=== PATIENT | female | born 1950 | race Caucasian/White ===

== ENCOUNTER 2016-07-07 13:51 | Emergency (ER) | payer MEDICARE ==
[~2016-07-07 13:51] MED LIST: ACET65TA; ASPI325T; AVAP150T; CALCCHW12; CALCUIM; HYDR25TA6; XANA0.25; ZOCO20TA; [UNRECOGNIZED DRUG - OTHER]
[2016-07-07] MEDS ORDERED: LEVALBUTEROL 1.25 MG/0.5 ML CONCENTRATE NEB As Ordered ONE (14:29)
--- NOTE | 2016-07-07 14:45 | REP ---
Chest two views HISTORY: Cough Comparison: 04/15/2013 The lungs are clear. The heart is normal in size. The pulmonary vasculature is normal in appearance. The bony structure is intact. IMPRESSION: No acute disease. Signed by Mirza Maya MD 07/07/2016 02:36 P
--- NOTE | 2016-07-07 15:22 | EDDOCDS ---
Nurse's Notes [facility] Name: Candice Avila Age: 65 yrs Sex: Female : 1950 Arrival Date: 07/07/2016 Time: 13:51 Bed PD2 / Private MD: Mary Brice Diagnosis: Cough;Acute upper respiratory infection, unspecified Presentation: 07/07 13:53 Presenting complaint: Patient states: coughing x2 weeks. Nasal congestion. Ear ttb infection (being treated)... unable to get into see PCP. Suicide/Homicide risk assessment- the patient denies having any suicidal and/or homicidal ideations and does not present with any other emotional, behavioral or mental health complaints. Status: Patient is not a service center assistant or dependent. Transition of care: patient was not received from another setting of care. 13:53 Acuity: Unassigned ttb 13:53 Method Of Arrival: Walkin/Carried/Asstd ttb 14:03 Adult Sepsis Screening: The patient does not have new or worsening altered mentation. ttb Patient's respiratory rate is less than 22. Systolic blood pressure is greater than 100. Patient has a qSOFA score of 0- Negative Sepsis Screen. 14:03 Acuity: ROXANNE Level 4 ttb Triage Assessment: 13:58 General: Appears in no apparent distress, well nourished, well groomed, Behavior is ttb appropriate for age, cooperative, pleasant. Pain: Denies pain. Neurological: Level of Consciousness is awake, alert. EENT: Reports nasal congestion nasal discharge. Cardiovascular: Chest pain is denied. Respiratory: Reports cough that is the patient has mild shortness of breath. Respiratory: Airway is patent Respiratory effort is even, unlabored. Derm: Skin is normal. Injury Description: No known injury. Historical: - Allergies: Zithromax Z-Koko; contrast; - Home Meds: 1. cefdinir 300 mg Oral cap 2 caps once daily (Last dose: 07/07/2016 08:00) 2. aspirin 325 mg Oral TbEC 1 tab once daily (Last dose: 07/07/2016 08:00) 3. losartan 100 mg oral tab 1 tab once daily (Last dose: 07/07/2016 08:00) 4. levothyroxine 75 mcg Oral cap 1 cap once daily (Last dose: 07/07/2016 07:00) 5. omeprazole 20 mg Oral cpDR 1 cap once daily (Last dose: 07/06/2016) 6. simvastatin 20 mg Oral tab 1 tab once daily (Last dose: 07/06/2016) 7. tramadol 50 mg Oral TbDL as needed (Last dose: 07/07/2016 10:00) 8. hydrochlorothiazide 12.5 mg Oral tab once daily (Last dose: 07/07/2016 08:00) - PMHx: Hypothyroidism; Hypertension; Hypercholesterolemia; TIA; - PSHx: CARPAL TUNNEL REPAIR; Breast Reduction; - Social history: Smoking status: Patient states was never smoker of tobacco. Patient/guardian denies using alcohol, street drugs, No barriers to communication noted, The patient speaks fluent Divehi, Speaks appropriately for age. - Family history: Not pertinent. - : The pt / caregiver states he / she is not on anticoagulants. Home medication list is obtained from the patient. - Exposure Risk Screening:: None identified. Screenin:20 Screening information is obtained from the patient. Fall risk: No risks identified. js13 Assistance ADL's: requires no assistance with activities of daily living. Abuse/DV Screen: The patient / caregiver reports he/she is: not in a situation that causes fear, pain or injury. Nutritional screening: No deficits noted. Advance Directives: There is no active DNR order. home support is adequate. Assessment: 14:25 General: Appears in no apparent distress, Behavior is appropriate for age, cooperative. srm Neurological: No deficits noted. EENT: No deficits noted. Respiratory: Airway is patent Respiratory effort is even, unlabored, Breath sounds with wheezes inspiratory expiratory bilaterally. GI: No deficits noted. Vital Signs: 13:53 BP 155 / 71; Pulse 70; Resp 17; Temp 97.8(T); Pulse Ox 98% on R/A; Weight 115.67 kg lr2 (R); Height 5 ft. 6 in. (167.64 cm) (R); 15:21 js13 13:53 Body Mass Index 41.16 (115.67 kg, 167.64 cm) lr2 15:21 Patient declines discharge VS js13 Vitals: 13:53 Log In Time: July 07, 2016 at 13:51. lr2 ED Course: 13:53 Patient visited by Ross, Brianne. lr2 13:53 Mary Brice is Private Physician. lr2 13:53 Patient moved to Waiting lr2 13:53 Patient moved to Pre RCE lr2 13:55 Triage Initiated ttb 13:59 Patient moved to Triage 2 ttb 14:01 [facility] dt4 14:01 Miranda Saavedra MD is Attending Physician. dt4 14:01 Patient visited by Joaquina Stafford PA-C. dt4 14:16 [facility] Payment Agreement was scanned into [employer] and attached to record. lg 14:19 Patient moved to PD js13 14:20 The patient / caregiver is instructed regarding the plan of care and ED course. js13 14:20 No IV's were initiated during this patient's visit. No procedures done that require js13 assistance. 14:25 Patient visited by Elmira Huntley RN. srm 15:01 Chest, 2 View (pa\E\lat) Returned. EDMS Administered Medications: 14:34 Drug: Levalbuterol 1.25 mg [levalbuterol 1.25 mg/0.5 mL solution for nebulization (0.5 cs15 mL)] Route: Nebulizer; RT: 14:35 Initial Med Neb Given as ordered. Oxygen is room air. Respiratory: Respiratory effort cs15 is unlabored, Respiratory pattern is regular symmetrical, Breath sounds with wheezes bilaterally. Order Results: Radiology Order: Chest, 2 View (pa\E\lat) Test: Chest, 2 View (pa\E\lat) REASON FOR EXAMINATION: Cough; Chest two views; ; HISTORY: Cough; ; Comparison: 04/15/2013; ; The lungs are clear. The heart is normal in size. The pulmonary vasculature is; normal in appearance. The bony structure is intact.; ; IMPRESSION: No acute disease.; ; ; Signed by; Mirza Maya MD 07/07/2016 02:36 P; Outcome: 15:15 Discharge ordered by Provider. dt4 15:18 Discharge Assessment: Patient awake, alert and oriented x 3. No cognitive and/or js13 functional deficits noted. Patient verbalized understanding of disposition instructions. patient administered narcotics - no. The following High Risk Discharge criteria are identified: None. Discharged to home ambulatory. Condition: stable. Discharge instructions given to patient, Instructed on discharge instructions, follow up and referral plans. medication usage, Demonstrated understanding of instructions, medications, Pt was receptive of discharge instructions/ teaching. Prescriptions given X 3. No special radiology studies were completed. Property :Personal belongings accompany Pt. 15:22 Patient left the ED. js13 Signatures: Dispatcher [employer] EDMS Elmira Huntley, RN RN Felicia Borja, Reg Reg lg Marilu Hogue RN RN js13 Ashely Ceja RN RN Joaquina King, ERIN PATrevon dt4 Patrick Abebe,RT RT cs15 Brianne Armando lr2 MTDD
--- NOTE | 2016-07-07 15:22 | EDDOCDS ---
Physician Documentation [facility] Name: Candice Avila Age: 65 yrs Sex: Female : 1950 Arrival Date: 07/07/2016 Time: 13:51 Bed PD Private MD: Mary Brice Disposition: 07/07/16 15:15 Discharged to Home/Self Care. Impression: Cough, Acute upper respiratory infection, unspecified. - Condition is Stable. - Discharge Instructions: Upper Respiratory Infection, Adult, Cough, Adult. - Prescriptions for Prednisone 20 mg Oral Tablet - take 2 tablets by ORAL route once daily for 5 days take with food, earlier in the day; 10 tablet. benzonatate 200 mg Oral Capsule - take 1 capsule by ORAL route 3 times per day As needed do not chew; 30 capsule. Fluticasone 50 mcg/actuation Nasal [place], Suspension - inhale 2 spray by INTRANASAL route once daily; 1 bottle. - Medication Reconciliation, Local Pharmacy Hours form. - Follow up: Emergency Department; When: As needed; Reason: Worsening of conditions. Follow up: Private Physician; When: 2 - 3 days; Reason: Wound/Symptom Recheck, Recheck today's complaints, Continuance of care. - Problem is new. - Symptoms have improved. Historical: - Allergies: Zithromax Z-Koko; contrast; - Home Meds: 1. cefdinir 300 mg Oral cap 2 caps once daily (Last dose: 07/07/2016 08:00) 2. aspirin 325 mg Oral TbEC 1 tab once daily (Last dose: 07/07/2016 08:00) 3. losartan 100 mg oral tab 1 tab once daily (Last dose: 07/07/2016 08:00) 4. levothyroxine 75 mcg Oral cap 1 cap once daily (Last dose: 07/07/2016 07:00) 5. omeprazole 20 mg Oral cpDR 1 cap once daily (Last dose: 07/06/2016) 6. simvastatin 20 mg Oral tab 1 tab once daily (Last dose: 07/06/2016) 7. tramadol 50 mg Oral TbDL as needed (Last dose: 07/07/2016 10:00) 8. hydrochlorothiazide 12.5 mg Oral tab once daily (Last dose: 07/07/2016 08:00) - PMHx: Hypothyroidism; Hypertension; Hypercholesterolemia; TIA; - PSHx: CARPAL TUNNEL REPAIR; Breast Reduction; - Social history: Smoking status: Patient states was never smoker of tobacco. Patient/guardian denies using alcohol, street drugs, No barriers to communication noted, The patient speaks fluent [place] Islander, Speaks appropriately for age. - Family history: Not pertinent. - : The pt / caregiver states he / she is not on anticoagulants. Home medication list is obtained from the patient. - Exposure Risk Screening:: None identified. Vital Signs: 07/07 13:53 BP 155 / 71; Pulse 70; Resp 17; Temp 97.8(T); Pulse Ox 98% on R/A; Weight 115.67 kg / lr2 255.01 lbs (R); Height 5 ft. 6 in. (167.64 cm) (R); 15:21 js13 13:53 Body Mass Index 41.16 (115.67 kg, 167.64 cm) lr2 15:21 Patient declines discharge VS js13 MDM: 14:16 Financial registration complete. lg 14:16 [facility] Payment Agreement was scanned into [employer] and attached to record. lg 14:20 Levalbuterol 1.25 mg Nebulizer once ordered. dt4 14:21 Chest, 2 View (pa\E\lat) Ordered. EDMS Administered Medications: 14:34 Drug: Levalbuterol 1.25 mg [levalbuterol 1.25 mg/0.5 mL solution for nebulization (0.5 cs15 mL)] Route: Nebulizer; Signatures: Dispatcher [employer] EDMS Felicia Ha, Amadeo Reg lg Marilu Hogue RN RN js13 Ashely Ceja RN RN Joaquina King PA-C PA-C dt4 Patrick Abebe RT cs15 The chart was reviewed and I authenticate all verbal orders and agree with the evaluation and treatment provided.Attachments: 14:16 [facility] Payment Agreement lg MTDD
--- NOTE | 2016-07-09 16:23 | EDDOCDS ---
Nurse's Notes [facility] Name: Candice Avila Age: 65 yrs Sex: Female : 1950 Arrival Date: 07/07/2016 Time: 13:51 Bed PD2 / Private MD: Mary Brice Diagnosis: Cough;Acute upper respiratory infection, unspecified Presentation: 07/07 13:53 Presenting complaint: Patient states: coughing x2 weeks. Nasal congestion. Ear ttb infection (being treated)... unable to get into see PCP. Suicide/Homicide risk assessment- the patient denies having any suicidal and/or homicidal ideations and does not present with any other emotional, behavioral or mental health complaints. 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 Transition of care: patient was not received from another setting of care. 13:53 Acuity: Unassigned ttb 13:53 Method Of Arrival: Walkin/Carried/Asstd ttb 14:03 Adult Sepsis Screening: The patient does not have new or worsening altered mentation. ttb Patient's respiratory rate is less than 22. Systolic blood pressure is greater than 100. Patient has a qSOFA score of 0- Negative Sepsis Screen. 14:03 Acuity: ROXANNE Level 4 ttb Triage Assessment: 13:58 General: Appears in no apparent distress, well nourished, well groomed, Behavior is ttb appropriate for age, cooperative, pleasant. Pain: Denies pain. Neurological: Level of Consciousness is awake, alert. EENT: Reports nasal congestion nasal discharge. Cardiovascular: Chest pain is denied. Respiratory: Reports cough that is the patient has mild shortness of breath. Respiratory: Airway is patent Respiratory effort is even, unlabored. Derm: Skin is normal. Injury Description: No known injury. Historical: - Allergies: Zithromax Z-Koko; contrast; - Home Meds: 1. cefdinir 300 mg Oral cap 2 caps once daily (Last dose: 07/07/2016 08:00) 2. aspirin 325 mg Oral TbEC 1 tab once daily (Last dose: 07/07/2016 08:00) 3. losartan 100 mg oral tab 1 tab once daily (Last dose: 07/07/2016 08:00) 4. levothyroxine 75 mcg Oral cap 1 cap once daily (Last dose: 07/07/2016 07:00) 5. omeprazole 20 mg Oral cpDR 1 cap once daily (Last dose: 07/06/2016) 6. simvastatin 20 mg Oral tab 1 tab once daily (Last dose: 07/06/2016) 7. tramadol 50 mg Oral TbDL as needed (Last dose: 07/07/2016 10:00) 8. hydrochlorothiazide 12.5 mg Oral tab once daily (Last dose: 07/07/2016 08:00) - PMHx: Hypothyroidism; Hypertension; Hypercholesterolemia; TIA; - PSHx: CARPAL TUNNEL REPAIR; Breast Reduction; - Social history: Smoking status: Patient states was never smoker of tobacco. Patient/guardian denies using alcohol, street drugs, No barriers to communication noted, The patient speaks fluent Khmer, Speaks appropriately for age. - Family history: Not pertinent. - : The pt / caregiver states he / she is not on anticoagulants. Home medication list is obtained from the patient. - Exposure Risk Screening:: None identified. Screenin:20 Screening information is obtained from the patient. Fall risk: No risks identified. js13 Assistance ADL's: requires no assistance with activities of daily living. Abuse/DV Screen: The patient / caregiver reports he/she is: not in a situation that causes fear, pain or injury. Nutritional screening: No deficits noted. Advance Directives: There is no active DNR order. home support is adequate. Assessment: 14:25 General: Appears in no apparent distress, Behavior is appropriate for age, cooperative. srm Neurological: No deficits noted. EENT: No deficits noted. Respiratory: Airway is patent Respiratory effort is even, unlabored, Breath sounds with wheezes inspiratory expiratory bilaterally. GI: No deficits noted. Vital Signs: 13:53 BP 155 / 71; Pulse 70; Resp 17; Temp 97.8(T); Pulse Ox 98% on R/A; Weight 115.67 kg lr2 (R); Height 5 ft. 6 in. (167.64 cm) (R); 15:21 js13 13:53 Body Mass Index 41.16 (115.67 kg, 167.64 cm) lr2 15:21 Patient declines discharge VS js13 Vitals: 13:53 Log In Time: July 07, 2016 at 13:51. lr2 ED Course: 13:53 Patient visited by Ross, Brianne. lr2 13:53 Mary Brice is Private Physician. lr2 13:53 Patient moved to Waiting lr2 13:53 Patient moved to Pre RCE lr2 13:55 Triage Initiated ttb 13:59 Patient moved to Triage 2 ttb 14:01 Joaquina Stafford PA-C is PHCP. dt4 14:01 Miranda Saavedra MD is Attending Physician. dt4 14:01 Patient visited by Joaquina Stafford PA-C. dt4 14:16 [facility] Payment Agreement was scanned into [employer] and attached to record. lg 14:19 Patient moved to PD js13 14:20 The patient / caregiver is instructed regarding the plan of care and ED course. js13 14:20 No IV's were initiated during this patient's visit. No procedures done that require js13 assistance. 14:25 Patient visited by Elmira Huntley RN. srm 15:01 Chest, 2 View (pa\E\lat) Returned. EDMS 07/08 11:53 T-Sheet-- Draft Copy was scanned into [employer] and attached to record. gb Administered Medications: 07/07 14:34 Drug: Levalbuterol 1.25 mg [levalbuterol 1.25 mg/0.5 mL solution for nebulization (0.5 cs15 mL)] Route: Nebulizer; RT: 14:35 Initial Med Neb Given as ordered. Oxygen is room air. Respiratory: Respiratory effort cs15 is unlabored, Respiratory pattern is regular symmetrical, Breath sounds with wheezes bilaterally. Order Results: Radiology Order: Chest, 2 View (pa\E\lat) Test: Chest, 2 View (pa\E\lat) REASON FOR EXAMINATION: Cough; Chest two views; ; HISTORY: Cough; ; Comparison: 04/15/2013; ; The lungs are clear. The heart is normal in size. The pulmonary vasculature is; normal in appearance. The bony structure is intact.; ; IMPRESSION: No acute disease.; ; ; Signed by; Mirza Maya MD 07/07/2016 02:36 P; Outcome: 15:15 Discharge ordered by Provider. dt4 15:18 Discharge Assessment: Patient awake, alert and oriented x 3. No cognitive and/or js13 functional deficits noted. Patient verbalized understanding of disposition instructions. patient administered narcotics - no. The following High Risk Discharge criteria are identified: None. Discharged to home ambulatory. Condition: stable. Discharge instructions given to patient, Instructed on discharge instructions, follow up and referral plans. medication usage, Demonstrated understanding of instructions, medications, Pt was receptive of discharge instructions/ teaching. Prescriptions given X 3. No special radiology studies were completed. Property :Personal belongings accompany Pt. 15:22 Patient left the ED. js13 Signatures: Dispatcher [employer] EDMS Elmira Huntley, RN RN [facility] Loretta Hazel, Reg Reg gb Felicia Ha, Reg Reg lg Marilu HogueRN RN js13 Ashely Ceja RN RN Joaquina King, PATrevon PAGenoC dt4 Patrick Abebe,RT RT cs15 Brianne Armando lr2 Chart Complete SABINA
--- NOTE | 2016-07-09 16:23 | EDDOCDS ---
Physician Documentation [facility] Name: Candice Avila Age: 65 yrs Sex: Female : 1950 Arrival Date: 07/07/2016 Time: 13:51 Bed PD Private MD: Mary Brice Disposition: 07/07/16 15:15 Discharged to Home/Self Care. Impression: Cough, Acute upper respiratory infection, unspecified. - Condition is Stable. - Discharge Instructions: Upper Respiratory Infection, Adult, Cough, Adult. - Prescriptions for Prednisone 20 mg Oral Tablet - take 2 tablets by ORAL route once daily for 5 days take with food, earlier in the day; 10 tablet. benzonatate 200 mg Oral Capsule - take 1 capsule by ORAL route 3 times per day As needed do not chew; 30 capsule. Fluticasone 50 mcg/actuation Nasal [place], Suspension - inhale 2 spray by INTRANASAL route once daily; 1 bottle. - Medication Reconciliation, Local Pharmacy Hours form. - Follow up: Emergency Department; When: As needed; Reason: Worsening of conditions. Follow up: Private Physician; When: 2 - 3 days; Reason: Wound/Symptom Recheck, Recheck today's complaints, Continuance of care. - Problem is new. - Symptoms have improved. Historical: - Allergies: Zithromax Z-Koko; contrast; - Home Meds: 1. cefdinir 300 mg Oral cap 2 caps once daily (Last dose: 07/07/2016 08:00) 2. aspirin 325 mg Oral TbEC 1 tab once daily (Last dose: 07/07/2016 08:00) 3. losartan 100 mg oral tab 1 tab once daily (Last dose: 07/07/2016 08:00) 4. levothyroxine 75 mcg Oral cap 1 cap once daily (Last dose: 07/07/2016 07:00) 5. omeprazole 20 mg Oral cpDR 1 cap once daily (Last dose: 07/06/2016) 6. simvastatin 20 mg Oral tab 1 tab once daily (Last dose: 07/06/2016) 7. tramadol 50 mg Oral TbDL as needed (Last dose: 07/07/2016 10:00) 8. hydrochlorothiazide 12.5 mg Oral tab once daily (Last dose: 07/07/2016 08:00) - PMHx: Hypothyroidism; Hypertension; Hypercholesterolemia; TIA; - PSHx: CARPAL TUNNEL REPAIR; Breast Reduction; - Social history: Smoking status: Patient states was never smoker of tobacco. Patient/guardian denies using alcohol, street drugs, No barriers to communication noted, The patient speaks fluent French, Speaks appropriately for age. - Family history: Not pertinent. - : The pt / caregiver states he / she is not on anticoagulants. Home medication list is obtained from the patient. - Exposure Risk Screening:: None identified. Vital Signs: 07/07 13:53 BP 155 / 71; Pulse 70; Resp 17; Temp 97.8(T); Pulse Ox 98% on R/A; Weight 115.67 kg / lr2 255.01 lbs (R); Height 5 ft. 6 in. (167.64 cm) (R); 15:21 js13 13:53 Body Mass Index 41.16 (115.67 kg, 167.64 cm) lr2 15:21 Patient declines discharge VS js13 MDM: 14:16 Financial registration complete. 14:16 [facility] Payment Agreement was scanned into [employer] and attached to record. lg 14:20 Levalbuterol 1.25 mg Nebulizer once ordered. dt4 14:21 Chest, 2 View (pa\E\lat) Ordered. [facility] 07/08 11:53 T-Sheet-- Draft Copy was scanned into [employer] and attached to record. gb Administered Medications: 07/07 14:34 Drug: Levalbuterol 1.25 mg [levalbuterol 1.25 mg/0.5 mL solution for nebulization (0.5 cs15 mL)] Route: Nebulizer; Signatures: Dispatcher [email or web address] EDMS Loretta Hazel, Reg Reg gb Felicia Ha, Reg Reg lg Marilu Hogue RN RN js13 Ashely Ceja RN RN ttb Tschudi, Diane, PA-C PATrevon dt4 Patrick Abebe RT cs15 The chart was reviewed and I authenticate all verbal orders and agree with the evaluation and treatment provided.Attachments: 14:16 [facility] Payment Agreement 07/08 11:53 T-Sheet-- Draft Copy gb Chart Complete MTDD
--- NOTE | 2016-07-09 16:23 | EDDOCDS ---
Physician Documentation [facility] Name: Candice Avila Age: 65 yrs Sex: Female : 1950 Arrival Date: 07/07/2016 Time: 13:51 Bed PD Private MD: Mary Brice Disposition: 07/07/16 15:15 Discharged to Home/Self Care. Impression: Cough, Acute upper respiratory infection, unspecified. - Condition is Stable. - Discharge Instructions: Upper Respiratory Infection, Adult, Cough, Adult. - Prescriptions for Prednisone 20 mg Oral Tablet - take 2 tablets by ORAL route once daily for 5 days take with food, earlier in the day; 10 tablet. benzonatate 200 mg Oral Capsule - take 1 capsule by ORAL route 3 times per day As needed do not chew; 30 capsule. Fluticasone 50 mcg/actuation Nasal [place], Suspension - inhale 2 spray by INTRANASAL route once daily; 1 bottle. - Medication Reconciliation, Local Pharmacy Hours form. - Follow up: Emergency Department; When: As needed; Reason: Worsening of conditions. Follow up: Private Physician; When: 2 - 3 days; Reason: Wound/Symptom Recheck, Recheck today's complaints, Continuance of care. - Problem is new. - Symptoms have improved. Historical: - Allergies: Zithromax Z-Koko; contrast; - Home Meds: 1. cefdinir 300 mg Oral cap 2 caps once daily (Last dose: 07/07/2016 08:00) 2. aspirin 325 mg Oral TbEC 1 tab once daily (Last dose: 07/07/2016 08:00) 3. losartan 100 mg oral tab 1 tab once daily (Last dose: 07/07/2016 08:00) 4. levothyroxine 75 mcg Oral cap 1 cap once daily (Last dose: 07/07/2016 07:00) 5. omeprazole 20 mg Oral cpDR 1 cap once daily (Last dose: 07/06/2016) 6. simvastatin 20 mg Oral tab 1 tab once daily (Last dose: 07/06/2016) 7. tramadol 50 mg Oral TbDL as needed (Last dose: 07/07/2016 10:00) 8. hydrochlorothiazide 12.5 mg Oral tab once daily (Last dose: 07/07/2016 08:00) - PMHx: Hypothyroidism; Hypertension; Hypercholesterolemia; TIA; - PSHx: CARPAL TUNNEL REPAIR; Breast Reduction; - Social history: Smoking status: Patient states was never smoker of tobacco. Patient/guardian denies using alcohol, street drugs, No barriers to communication noted, The patient speaks fluent French, Speaks appropriately for age. - Family history: Not pertinent. - : The pt / caregiver states he / she is not on anticoagulants. Home medication list is obtained from the patient. - Exposure Risk Screening:: None identified. Vital Signs: 07/07 13:53 BP 155 / 71; Pulse 70; Resp 17; Temp 97.8(T); Pulse Ox 98% on R/A; Weight 115.67 kg / lr2 255.01 lbs (R); Height 5 ft. 6 in. (167.64 cm) (R); 15:21 js13 13:53 Body Mass Index 41.16 (115.67 kg, 167.64 cm) lr2 15:21 Patient declines discharge VS js13 MDM: 14:16 Financial registration complete. 14:16 [facility] Payment Agreement was scanned into [employer] and attached to record. lg 14:20 Levalbuterol 1.25 mg Nebulizer once ordered. dt4 14:21 Chest, 2 View (pa\E\lat) Ordered. [facility] 07/08 11:53 T-Sheet-- Draft Copy was scanned into [employer] and attached to record. gb Administered Medications: 07/07 14:34 Drug: Levalbuterol 1.25 mg [levalbuterol 1.25 mg/0.5 mL solution for nebulization (0.5 cs15 mL)] Route: Nebulizer; Signatures: Dispatcher [email or web address] EDMS Loretta Hazel, Reg Reg gb Felicia Ha, Reg Reg lg Marilu Hogue RN RN js13 Ashely Ceja RN RN ttb Tschudi, Diane, PA-C PATrevon dt4 Patrick Abebe RT cs15 The chart was reviewed and I authenticate all verbal orders and agree with the evaluation and treatment provided.Attachments: 14:16 [facility] Payment Agreement 07/08 11:53 T-Sheet-- Draft Copy gb Chart Complete MTDD
== END 2016-07-07 15:22 | disposition home or self-care (01) ==
LOC: M ED 13:51
DX: J06.9 Acute upper respiratory infection, unspecified (principal); E03.9 Hypothyroidism, unspecified; I10 Essential (primary) hypertension; E78.00 Pure hypercholesterolemia, unspecified; Z86.73 Personal history of transient ischemic attack (TIA), and cerebral infarction without residual deficits; Z79.82 Long term (current) use of aspirin; Z79.891 Long term (current) use of opiate analgesic; Z79.899 Other long term (current) drug therapy; Z88.1 Allergy status to other antibiotic agents; Z91.041 Radiographic dye allergy status

== ENCOUNTER → 2016-07-12 | Outpatient (REF) | payer MEDICARE ==
[2016-07-12 19:14] LABS: FREE T4 1.15 NG/DL (0.76-1.46)
== END ==
LOC: M LABDRAW1 16:56
PROVIDERS: ATTEND Internal Medicine
DX: E89.0 Postprocedural hypothyroidism (principal)

== ENCOUNTER 2016-07-19 08:30 | Emergency (ER) | payer MEDICARE ==
[2016-07-19] MEDS ORDERED: diphenhydrAMINE INJ 50MG/ML VIAL (J1200) As Ordered ONE (09:22)
[2016-07-19] MEDS ORDERED: METOCLOPRAMIDE INJ 10MG/2ML VIAL (J2765) As Ordered ONE (09:22)
[2016-07-19 09:41] LABS: BASO % 0.3 % (0.0-1.0); EOS # 0.2 K/mm3 (0.0-0.50); EOS % 2.3 % (0.0-3.0); LARGE UNSTAINED CELL # 0.2 K/mm3 (0.0-0.4); LARGE UNSTAINED CELL % 1.9 % (0.0-4.0); LYMPH # 1.5 K/mm3 (1.5-4.5); LYMPH % 15.6 % (24.0-44.0); MEAN CORPUSCULAR HEMOGLOBIN 28.8 pg (27.0-33.0); MEAN CORPUSCULAR HGB CONC 32.8 g/dl (32.0-36.5); MEAN CORPUSCULAR VOLUME 87.8 fl (80.0-96.0); MONO # 0.5 K/mm3 (0.0-0.8); MONO % 5.4 % (0.0-5.0); NEUTROPHILS # 7.1 K/mm3 (1.8-7.7); NEUTROPHILS % 74.4 % (36.0-66.0); PLATELET COUNT, AUTOMATED 178 k/mm3 (150-450); RED CELL DISTRIBUTION WIDTH 12.7 % (11.5-14.5); WHITE BLOOD COUNT 9.5 K/mm3 (4.0-10.0)
[2016-07-19 10:15] LABS: ALBUMIN 3.5 GM/DL (3.2-5.2); ALBUMIN/GLOBULIN RATIO 1.06 (1.00-1.93); ALKALINE PHOSPHATASE 108 U/L (45-117); ALT/SGPT 22 U/L (12-78); ANION GAP 8 MEQ/L (8-16); AST/SGOT 15 U/L (15-37); BILIRUBIN,DIRECT 0.2 MG/DL (0.0-0.2); BILIRUBIN,TOTAL 0.6 MG/DL (0.2-1.0); BLOOD UREA NITROGEN 9 MG/DL (7-18); CALCIUM LEVEL 9.6 MG/DL (8.8-10.2); CARBON DIOXIDE LEVEL 29 MEQ/L (21-32); CHLORIDE LEVEL 103 MEQ/L (98-107); GLOMERULAR FILTRATION RATE 58.9 (>45); GLUCOSE, FASTING 113 MG/DL (80-110); POTASSIUM SERUM 3.6 MEQ/L (3.5-5.1); SODIUM LEVEL 140 MEQ/L (136-145); TOTAL PROTEIN 6.8 GM/DL (6.4-8.2)
--- NOTE | 2016-07-19 10:18 | ECGEPIP ---
Stationary ECG Study [facility] [place] - ED Test Date: 2016-07-19 Pat Name: RED FORREST Department: Room: - Gender: F Meat Butcher: jen : 1950 Requested By: Elizabeth Covington Order Number: [id number] Reading MD: Elizabeth Covington Measurements Intervals [place] Rate: 61 P: 83 [place]: 203 QRS: -4 QRSD: 89 T: 52 QT: 440 QTc: 446 Interpretive Statements SINUS RHYTHM NONSPECIFIC T-WAVE ABNORMALITY DECREASED RATE 06/12/14 Electronically Signed On 07-19-2016 10:06:48 EST by Elizabeth Covington
--- NOTE | 2016-07-19 10:18 | REP ---
Clinical: Headache. Comparison 06/12/2014. Findings: Age-related atrophy and microvascular ischemic changes are appreciated. The ventricles and sulci are symmetric. Gonzalez-white differentiation is maintained. There is no evidence for acute intracranial hemorrhage, mass/mass effect, pathology or infarction. No extra-axial fluid collection. Calvarium is intact. Paranasal sinuses and mastoid air cells are clear. Impression: Age related atrophy and microvascular ischemic changes. No acute intracranial hemorrhage, infarction, or mass/mass effect. Signed by Bharat Alva MD 07/19/2016 10:07 A
--- NOTE | 2016-07-19 13:38 | EDDOCDS ---
Nurse's Notes [facility] Name: Red Forrest Age: 65 yrs Sex: Female : 1950 Arrival Date: 07/19/2016 Time: 08:30 Bed 8 Private MD: Mervin Gaston M.D. Diagnosis: Headache;Adjustment disorder with depressed mood Presentation: 07/19 08:33 Presenting complaint: Patient states: "Pressure in my head" and dizziness began 5-6 mlb1 weeks ago. This patient has no additional risk factors. Adult Sepsis Screening: The patient does not have new or worsening altered mentation. Patient's respiratory rate is less than 22. Systolic blood pressure is greater than 100. No known or suspected infection- Negative Sepsis Screen. Adult Sepsis Screening: Patient has a qSOFA score of 0- Negative Sepsis Screen. Suicide/Homicide risk assessment- the patient denies having any suicidal and/or homicidal ideations and does not present with any other emotional, behavioral or mental health complaints. Status: Patient is not a job service consultant or dependent. Transition of care: patient was not received from another setting of care. 08:33 Acuity: ROXANNE Level 3 mlb1 08:33 Method Of Arrival: Walkin/Carried/Asstd mlb1 Triage Assessment: 08:36 Headache History: This patient does not have a history of previous headaches. General: mlb1 Appears in no apparent distress, Behavior is appropriate for age, cooperative. Pain: Location: head Pain currently is 9 out of 10 on a pain scale. Neurological: Reports dizziness. Historical: - Allergies: contrast; Zithromax Z-Koko; - Home Meds: 1. aspirin 325 mg Oral TbEC 1 tab once daily 2. hydrochlorothiazide 12.5 mg Oral tab once daily 3. levothyroxine 75 mcg Oral cap 1 cap once daily 4. losartan 100 mg oral tab 1 tab once daily 5. omeprazole 20 mg Oral cpDR 1 cap once daily 6. simvastatin 20 mg Oral tab 1 tab once daily 7. tramadol 50 mg Oral TbDL as needed - PMHx: Hypercholesterolemia; Hypertension; Hypothyroidism; TIA; - PSHx: CARPAL TUNNEL REPAIR; Breast Reduction; - Social history: Smoking status: Patient states former smoker of tobacco. No barriers to communication noted, The patient speaks fluent [place], Speaks appropriately for age. - Family history: Not pertinent. - : The pt / caregiver states he / she is not on anticoagulants. Home medication list is obtained from the patient. - Exposure Risk Screening:: None identified. Screenin:36 Screening information is obtained from the patient. Fall risk: No risks identified. dsf Assistance ADL's: requires no assistance with activities of daily living. Abuse/DV Screen: The patient / caregiver reports he/she is: not in a situation that causes fear, pain or injury. Nutritional screening: No deficits noted. Advance Directives: Currently, there is no health care proxy. home support is adequate. Assessment: 09:33 General: Appears in no apparent distress, Behavior is flat. Pain: Location: head Pain dsf currently is 8 out of 10 on a pain scale. Neurological: Level of Consciousness is awake, alert, Oriented to person, place, none. Cardiovascular: No deficits noted. Respiratory: No deficits noted. Derm: Skin is pink, warm & dry. 10:27 Adult Sepsis Screening: The patient does not have new or worsening altered mentation. dsf Patient's respiratory rate is less than 22. Systolic blood pressure is greater than 100. Patient has a qSOFA score of 0- Negative Sepsis Screen. General: Appears in no apparent distress, Behavior is flat. Pain: Location: head Pain currently is 6 out of 10 on a pain scale. Neurological: Level of Consciousness is awake, alert, Oriented to person, place, time. Cardiovascular: Capillary refill < 3 seconds Heart tones S1 S2 present Rhythm is sinus bradycardia No ectopy. Respiratory: Airway is patent Respiratory effort is even, unlabored, Respiratory pattern is regular, symmetrical, Breath sounds are clear bilaterally. GI: Abdomen is non- distended Bowel sounds present X 4 quads. Abd is soft and non tender X 4 quads. Derm: Skin is pink, warm & dry. 10:45 General: pt drinking devan mahesh without difficulty . dsf 11:35 Adult Sepsis Screening: The patient does not have new or worsening altered mentation. dsf Patient's respiratory rate is less than 22. Systolic blood pressure is greater than 100. Patient has a qSOFA score of 0- Negative Sepsis Screen. General: Appears in no apparent distress, comfortable, Behavior is appropriate for age, cooperative, flat. Pain: Location: head Pain currently is 4 out of 10 on a pain scale. Neurological: Level of Consciousness is awake, alert. Cardiovascular: Capillary refill < 3 seconds. Respiratory: Airway is patent Respiratory effort is even, unlabored, Respiratory pattern is regular, symmetrical. Derm: Skin is pink, warm & dry. 12:35 General: Appears in no apparent distress, Behavior is appropriate for age, cooperative, hs1 flat. Neurological: Level of Consciousness is awake, alert. Cardiovascular: Capillary refill < 3 seconds. Respiratory: Airway is patent Respiratory effort is even, unlabored, Respiratory pattern is regular, symmetrical. Derm: Skin is pink, warm & dry. 13:10 General: Steven Serrano PFS in talking to patient and significant other . dsf 13:36 Adult Sepsis Screening: The patient does not have new or worsening altered mentation. dsf Patient's respiratory rate is less than 22. Systolic blood pressure is greater than 100. Patient has a qSOFA score of 0- Negative Sepsis Screen. General: Appears in no apparent distress, comfortable, Behavior is appropriate for age, cooperative, flat. Pain: Location: head Pain currently is 1 out of 10 on a pain scale. Neurological: Level of Consciousness is awake, alert, Oriented to person, place, time. Cardiovascular: No deficits noted. Respiratory: No deficits noted. Derm: Skin is pink, warm & dry. Vital Signs: 08:37 BP 171 / 83; Pulse 68; Resp 16; Temp 98.2(TE); Pulse Ox 98% on R/A; Weight 117.93 kg mlb1 (R); Height 5 ft. 6 in. (167.64 cm) (R); Pain 9/10; 10:06 Pulse 52 MON; dsf 10:06 BP 151 / 69 (auto/); dsf 10:07 Pulse 52 MON; Pulse Ox 98% ; dsf 10:07 Pain 6/10; dsf 10:26 BP 151 / 65 (auto/); dsf 10:27 Pulse 56 MON; Pulse Ox 97% ; dsf 11:41 Pulse 58 MON; Pulse Ox 97% ; dsf 11:41 BP 120 / 56 (auto/); dsf 11:56 BP 120 / 54 (auto/); dsf 11:56 Pulse 52 MON; Pulse Ox 96% ; dsf 12:49 BP 115 / 57; Pulse 71; Resp 16; Temp 97.2; Pulse Ox 97% ; Pain 3/10; cmb 08:37 Body Mass Index 41.96 (117.93 kg, 167.64 cm) mlb1 Vitals: 08:37 Log In Time: July 19, 2016 at 08:28. mlb1 ED Course: 08:31 Patient visited by Felicia Ha Reg. lg 08:31 Mervin Gaston is Private Physician. lg 08:31 Patient moved to Waiting lg 08:33 Patient visited by Shaka Romero, RN. mlb1 08:35 Triage Initiated mlb1 08:37 Patient visited by Shaka Romero, RN. mlb1 08:38 Patient moved to 8 mlb1 09:04 Elizabeth Covington MD is Attending Physician. sd1 09:08 Patient visited by Elizabeth Covington MD. sd1 09:30 EKG done. (by ED staff). Reviewed by Elizabeth Covington MD. cmb 09:33 Inserted saline lock: 20 gauge in left antecubital area The patient tolerated the dsf procedure well. 09:34 CBC with Diff Sent. dsf 09:34 Cardiac Injury Profile Sent. dsf 09:34 Liver Profile Sent. dsf 09:34 MED Profile Sent. dsf 09:34 Thyroid Stimulating Hormone Sent. dsf 09:34 Troponin Sent. dsf 09:35 Pt greeted and oriented to ED. Patient advised of names of staff involved in care, cmb location of call corral, wait times and NPO status. Patient has correct armband on for positive identification. Placed in gown. Bed in low position. Call light in reach. Side rails up X2. rubber tester on. Pulse ox on. NIBP on. 09:36 Patient visited by Rachel Cherry. cmb 09:[address] dsf 09:49 [facility] Payment Agreement was scanned into [employer] and attached to record. mm15 09:58 Patient moved to 8 dsf 10:07 Patient visited by Rachel Cherry. cmb 10:28 Patient visited by Guillermina Randolph,JAVON. dsf 10:49 EKG-ADULT Returned. EDMS 10:52 CT Head Without Contrast Returned. EDMS 11:36 Patient visited by Guillermina Randolph,JAVON. dsf 12:39 Patient visited by Kassi Head RN. hs1 12:49 Patient visited by Rachel Cherry. cmb 13:27 Mervin Gaston is Referral Physician. sd1 13:27 Racheal Naqvi MD is Referral Physician. sd1 13:27 Referral list, As provided by PFS is Referral Physician. sd1 13:37 The patient / caregiver is instructed regarding the plan of care and ED course. dsf 13:37 Discontinued lock intact, bleeding controlled, pressure dressing applied, No dsf redness/swelling at site. No procedures done that require assistance. Administered Medications: 09:34 Drug: Metoclopramide 10 mg [metoclopramide 5 mg/mL injection solution] Route: IV; Rate: dsf 40 mg/hr; Infused Over: 15 mins; Site: left antecubital; 10:07 Follow up: Pain 11/04 Adult; IV Status: Completed infusion dsf 09:34 Drug: diphenhydrAMINE 25 mg [diphenhydramine 50 mg/mL injection solution (0.5 mL)] dsf Route: IVP; Site: left antecubital; 09:35 Drug: NS 0.9% 1000 ml [sodium chloride 0.9 % injection solution] Route: IV; Rate: 150 dsf mL/hr; Site: left antecubital; 10:27 Drug: NS 0.9% 1000 ml [sodium chloride 0.9 % injection solution] Route: IV; Rate: dsf bolus; Site: left antecubital; 12:01 Follow up: IV Status: Completed infusion; IV Intake: 1000ml dsf Intake: 12:01 IV: 1000.00ml; Total: 1000.00ml. dsf Order Results: Lab Order: CBC with Diff; SPEC'M 07/19/16 09:32 Test: WHITE BLOOD COUNT; Value: 9.5; Range: 4.0-10.0; Units: K/mm3; Status: F Test: RED BLOOD COUNT; Value: 5.01; Range: 4.00-5.40; Units: M/mm3; Status: F Test: HEMOGLOBIN; Value: 14.4; Range: 12.0-16.0; Units: g/dl; Status: F Test: HEMATOCRIT; Value: 44.0; Range: 36.0-47.0; Units: %; Status: F Test: MEAN CORPUSCULAR VOLUME; Value: 87.8; Range: 80.0-96.0; Units: fl; Status: F Test: MEAN CORPUSCULAR HEMOGLOBIN; Value: 28.8; Range: 27.0-33.0; Units: pg; Status: F Test: MEAN CORPUSCULAR HGB CONC; Value: 32.8; Range: 32.0-36.5; Units: g/dl; Status: F Test: RED CELL DISTRIBUTION WIDTH; Value: 12.7; Range: 11.5-14.5; Units: %; Status: F Test: PLATELET COUNT, AUTOMATED; Value: 178; Range: 150-450; Units: k/mm3; Status: F Test: NEUTROPHILS %; Value: 74.4; Range: 36.0-66.0; Abnormal: Above high normal; Units: %; Status: F Test: LYMPH %; Value: 15.6; Range: 24.0-44.0; Abnormal: Below low normal; Units: %; Status: F Test: MONO %; Value: 5.4; Range: 0.0-5.0; Abnormal: Above high normal; Units: %; Status: F Test: EOS %; Value: 2.3; Range: 0.0-3.0; Units: %; Status: F Test: BASO %; Value: 0.3; Range: 0.0-1.0; Units: %; Status: F Test: LARGE UNSTAINED CELL %; Value: 1.9; Range: 0.0-4.0; Units: %; Status: F Test: NEUTROPHILS #; Value: 7.1; Range: 1.8-7.7; Units: K/mm3; Status: F Test: LYMPH #; Value: 1.5; Range: 1.5-4.5; Units: K/mm3; Status: F Test: MONO #; Value: 0.5; Range: 0.0-0.8; Units: K/mm3; Status: F Test: EOS #; Value: 0.2; Range: 0.0-0.50; Units: K/mm3; Status: F Test: BASO #; Value: 0.0; Range: 0.0-0.2; Units: K/mm3; Status: F Test: LARGE UNSTAINED CELL #; Value: 0.2; Range: 0.0-0.4; Units: K/mm3; Status: F Lab Order: Cardiac Injury Profile; [facility]07/19/16 09:32 Test: CPK CREATINE PHOSPHOKINASE; Value: 22; Range: 26-192; Abnormal: Below low normal; Units: U/L; Status: F Test: CK-MB VALUE MASS; Value: 1.0; Range: 0.0-3.6; Units: NG/ML; Status: F Test: MB/CK RELATIVE INDEX; Value: 4.54; Range: < OR =4; Abnormal: Above high normal; Status: F Test Note: ; DIAGNOSIS CRITERIA MMB ng/ml Relative Index (RI) NON-AMI < or = 5 N/A GONZALEZ ZONE > 5 < or = 4 AMI > 5 > 4 Lab Order: Liver Profile; [facility]07/19/16 09:32 Test: AST/SGOT; Value: 15; Range: 15-37; Units: U/L; Status: F Test: ALT/SGPT; Value: 22; Range: 12-78; Units: U/L; Status: F Test: ALKALINE PHOSPHATASE; Value: 108; Range: 45-117; Units: U/L; Status: F Test: BILIRUBIN,TOTAL; Value: 0.6; Range: 0.2-1.0; Units: MG/DL; Status: F Test: BILIRUBIN,DIRECT; Value: 0.2; Range: 0.0-0.2; Units: MG/DL; Status: F Test: TOTAL PROTEIN; Value: 6.8; Range: 6.4-8.2; Units: GM/DL; Status: F Test: ALBUMIN; Value: 3.5; Range: 3.2-5.2; Units: GM/DL; Status: F Test: ALBUMIN/GLOBULIN RATIO; Value: 1.06; Range: 1.00-1.93; Status: F Lab Order: MED Profile; 07/19/16 09:32 Test: GLUCOSE, FASTING; Value: 113; Range: 80-110; Abnormal: Above high normal; Units: MG/DL; Status: F Test: BLOOD UREA NITROGEN; Value: 9; Range: 7-18; Units: MG/DL; Status: F Test: CREATININE FOR GFR; Value: 1.00; Range: 0.55-1.02; Units: MG/DL; Status: F Test: GLOMERULAR FILTRATION RATE; Value: 58.9; Range: >45; Status: F Test: SODIUM LEVEL; Value: 140; Range: 136-145; Units: MEQ/L; Status: F Test: POTASSIUM SERUM; Value: 3.6; Range: 3.5-5.1; Units: MEQ/L; Status: F Test: CHLORIDE LEVEL; Value: 103; Range: 98-107; Units: MEQ/L; Status: F Test: CARBON DIOXIDE LEVEL; Value: 29; Range: 21-32; Units: MEQ/L; Status: F Test: ANION GAP; Value: 8; Range: 8-16; Units: MEQ/L; Status: F Test: CALCIUM LEVEL; Value: 9.6; Range: 8.8-10.2; Units: MG/DL; Status: F Test Note: ; Units are mL/min/1.73 m2 Chronic Kidney Disease Staging per NKF: Stage I & II GFR >=60 Normal to Mildly Decreased Stage III GFR 30-59 Moderately Decreased Stage IV GFR 15-29 Severely Decreased Stage V GFR <15 Very Little GFR Left ESRD GFR <15 on RING CONDUCTOR Lab Order: Thyroid Stimulating Hormone; SPEC'M 07/19/16 09:32 Test: THYROID STIMULATING HORMONE; Value: 1.130; Range: 0.358-3.740; Units: uIU/ML; Status: F Lab Order: Troponin; SPEC'M 07/19/16 09:32 Test: TROPONIN I; Value: < 0.02; Range: < 0.10; Units: NG/ML; Status: F Test Note: ; Troponin I Reference Interval for [employer] LOCI: 99th Percentile= 0.00-0.045 ng/ml Risk Stratification: <= 0.10 ng/ml Decreased Risk for Adverse Clinical Events. 0.10-1.50 ng/ml Increased Risk for Adverse Clinical Events. Evaluation of additional criterion and/or repeat testing in 2-6 hours is suggested to rule out myocardial damage. >= 1.50 ng/ml Indicative of Myocardial Injury. Radiology Order: CT Head Without Contrast Test: CT Head Without Contrast REASON FOR EXAMINATION: HEADACHE DIZZY ; Clinical: Headache.; ; Comparison 06/12/2014.; ; Findings:; Age-related atrophy and microvascular ischemic changes are appreciated. The; ventricles and sulci are symmetric. Gonzalez-white differentiation is maintained.; There is no evidence for acute intracranial hemorrhage, mass/mass effect,; pathology or infarction. No extra-axial fluid collection. Calvarium is intact.; Paranasal sinuses and mastoid air cells are clear.; ; Impression:; Age related atrophy and microvascular ischemic changes.; No acute intracranial hemorrhage, infarction, or mass/mass effect.; ; ; ; ; Signed by; Bharat Alva MD 07/19/2016 10:07 A; Radiology Order: EKG-ADULT Test: EKG-ADULT REASON FOR EXAMINATION: WEAKNESS; Stationary ECG Study; [facility] - ED; ; Test Date: 2016-07-19; Pat Name: RED FORREST Department:; Room: -; Gender: F Quality Improvement Consultant: jen; : 1950 Requested By: Elizabeth Covington; Order Number: [id number] Reading MD: Elizabeth Covington; Measurements; Intervals [place]; Rate: 61 P: 83; FL: 203 QRS: -4; QRSD: 89 T: 52; QT: 440; QTc: 446; Interpretive Statements; SINUS RHYTHM; NONSPECIFIC T-WAVE ABNORMALITY; DECREASED RATE 06/12/14; Electronically Signed On 07-19-2016 10:06:48 EST by Elizabeth Covington; Outcome: 13:27 Discharge ordered by Provider. sd1 13:37 Discharge Assessment: Patient awake, alert and oriented x 3. No cognitive and/or dsf functional deficits noted. Patient verbalized understanding of disposition instructions. patient administered narcotics - no. The following High Risk Discharge criteria are identified: None. Discharged to home ambulatory. Condition: stable. Discharge instructions given to patient, Instructed on discharge instructions, follow up and referral plans. Demonstrated understanding of instructions, Pt was receptive of discharge instructions/ teaching. CT Study completed. Property sent home with patient. 13:37 Patient left the ED. dsf Signatures: Dispatcher [employer] EDPA Elizabeth Covington MD MD sd1 Felicia Ha, Shaka Proctor lg RN RN mlb1 Kassi Head RN RN hs1 Guillermina Randolph RN RN dsRachel Hoffman cmb Renay Ziegler mm15 MTDD
--- NOTE | 2016-07-19 13:38 | EDDOCDS ---
Physician Documentation [facility] Name: Candice Avila Age: 65 yrs Sex: Female : 1950 Arrival Date: 07/19/2016 Time: 08:30 Bed 8 Private MD: Mervin Gaston M.D. Disposition: 07/19/16 13:27 Discharged to Home/Self Care. Impression: Headache, Adjustment disorder with depressed mood. - Condition is Stable. - Discharge Instructions: Adjustment Disorder, Migraine Headache, Migraine Headache, [id number], General Headache Without Cause, [id number]. - Medication Reconciliation, Local Pharmacy Hours form. - Follow up: Mervin Gaston; When: 1 - 2 days. Follow up: ; When: Call to arrange an appointment. Follow up: As provided by PFS Referral list; When: Call to arrange an appointment. - Problem is an acute exacerbation. - Symptoms have improved. Historical: - Allergies: contrast; Zithromax Z-Koko; - Home Meds: 1. aspirin 325 mg Oral TbEC 1 tab once daily 2. hydrochlorothiazide 12.5 mg Oral tab once daily 3. levothyroxine 75 mcg Oral cap 1 cap once daily 4. losartan 100 mg oral tab 1 tab once daily 5. omeprazole 20 mg Oral cpDR 1 cap once daily 6. simvastatin 20 mg Oral tab 1 tab once daily 7. tramadol 50 mg Oral TbDL as needed - PMHx: Hypercholesterolemia; Hypertension; Hypothyroidism; TIA; - PSHx: CARPAL TUNNEL REPAIR; Breast Reduction; - Social history: Smoking status: Patient states former smoker of tobacco. No barriers to communication noted, The patient speaks fluent [place], Speaks appropriately for age. - Family history: Not pertinent. - : The pt / caregiver states he / she is not on anticoagulants. Home medication list is obtained from the patient. - Exposure Risk Screening:: None identified. Vital Signs: 07/19 08:37 BP 171 / 83; Pulse 68; Resp 16; Temp 98.2(TE); Pulse Ox 98% on R/A; Weight 117.93 kg / mlb1 259.99 lbs (R); Height 5 ft. 6 in. (167.64 cm) (R); Pain 9/10; 10:06 Pulse 52 MON; dsf 10:06 BP 151 / 69 (auto/); dsf 10:07 Pulse 52 MON; Pulse Ox 98% ; dsf 10:07 Pain 6/10; dsf 10:26 BP 151 / 65 (auto/); dsf 10:27 Pulse 56 MON; Pulse Ox 97% ; dsf 11:41 Pulse 58 MON; Pulse Ox 97% ; dsf 11:41 BP 120 / 56 (auto/); dsf 11:56 BP 120 / 54 (auto/); dsf 11:56 Pulse 52 MON; Pulse Ox 96% ; dsf 12:49 BP 115 / 57; Pulse 71; Resp 16; Temp 97.2; Pulse Ox 97% ; Pain 3/10; cmb 08:37 Body Mass Index 41.96 (117.93 kg, 167.64 cm) mlb1 MDM: 09:20 NS 0.9% 1000 ml IV at 150 mL/hr continuous ordered. sd1 09:20 Metoclopramide 10 mg IV at 40 mg/hr once over 15 mins ordered. sd1 09:20 diphenhydrAMINE 25 mg IVP once ordered. sd1 09:20 Financial Internship/Pulse Ox/q 15 min VS ordered. sd1 09:20 IV Saline Lock ordered. sd1 09:20 Rhythm Strip to chart ordered. sd1 09:21 CT Head Without Contrast Ordered. EDMS 09:21 CBC with Diff Ordered. EDMS 09:21 Cardiac Injury Profile Ordered. EDMS 09:21 Liver Profile Ordered. EDMS 09:21 MED Profile Ordered. EDMS 09:21 Thyroid Stimulating Hormone Ordered. EDMS 09:21 Troponin Ordered. EDMS 09:22 ECG WITH READING ER PHYS+CARDIAG ordered. EDMS 09:37 Consult: Machine Tank Operator ordered. sd1 09:47 Financial registration complete. mm15 09:49 [facility] Payment Agreement was scanned into [employer] and attached to record. mm15 10:18 CBC with Diff Reviewed. sd1 10:18 MED Profile Reviewed. sd1 10:18 Liver Profile Reviewed. sd1 10:18 Troponin Reviewed. sd1 10:19 NS 0.9% 1000 ml IV at 250 mL/hr continuous ordered. sd1 10:19 NS 0.9% 1000 ml IV at bolus once ordered. sd1 10:33 Cardiac Injury Profile Reviewed. sd1 10:33 MED Profile Reviewed. sd1 10:33 Liver Profile Reviewed. sd1 10:33 Thyroid Stimulating Hormone Reviewed. sd1 10:33 Troponin Reviewed. sd1 10:42 Fluid Challenge ordered. sd1 11:49 REGULAR+DIET ordered. EDMS Administered Medications: 09:34 Drug: Metoclopramide 10 mg [metoclopramide 5 mg/mL injection solution] Route: IV; Rate: dsf 40 mg/hr; Infused Over: 15 mins; Site: left antecubital; 10:07 Follow up: Pain 10 Adult; IV Status: Completed infusion dsf 09:34 Drug: diphenhydrAMINE 25 mg [diphenhydramine 50 mg/mL injection solution (0.5 mL)] dsf Route: IVP; Site: left antecubital; 09:35 Drug: NS 0.9% 1000 ml [sodium chloride 0.9 % injection solution] Route: IV; Rate: 150 dsf mL/hr; Site: left antecubital; 10:27 Drug: NS 0.9% 1000 ml [sodium chloride 0.9 % injection solution] Route: IV; Rate: dsf bolus; Site: left antecubital; 12:01 Follow up: IV Status: Completed infusion; IV Intake: 1000ml dsf Signatures: Dispatcher [employer] EDMS Elizabeth Covington MD MD sd1 Shaka Romero RN RN mlb1 Guillermina Randolph RN RN dsf Renay Ziegler mm15 The chart was reviewed and I authenticate all verbal orders and agree with the evaluation and treatment provided.Attachments: 09:49 [facility] Payment Agreement mm15 MTDD
--- NOTE | 2016-07-21 14:38 | EDDOCDS ---
Nurse's Notes [facility] Name: Red Forrest Age: 65 yrs Sex: Female : 1950 Arrival Date: 07/19/2016 Time: 08:30 Bed 8 Private MD: Mervin Gaston M.D. Diagnosis: Headache;Adjustment disorder with depressed mood Presentation: 07/19 08:33 Presenting complaint: Patient states: "Pressure in my head" and dizziness began 5-6 mlb1 weeks ago. This patient has no additional risk factors. Adult Sepsis Screening: The patient does not have new or worsening altered mentation. Patient's respiratory rate is less than 22. Systolic blood pressure is greater than 100. No known or suspected infection- Negative Sepsis Screen. Adult Sepsis Screening: Patient has a qSOFA score of 0- Negative Sepsis Screen. Suicide/Homicide risk assessment- the patient denies having any suicidal and/or homicidal ideations and does not present with any other emotional, behavioral or mental health complaints. Status: Patient is not a social service manager or dependent. Transition of care: patient was not received from another setting of care. 08:33 Acuity: ROXANNE Level 3 mlb1 08:33 Method Of Arrival: Walkin/Carried/Asstd mlb1 Triage Assessment: 08:36 Headache History: This patient does not have a history of previous headaches. General: mlb1 Appears in no apparent distress, Behavior is appropriate for age, cooperative. Pain: Location: head Pain currently is 9 out of 10 on a pain scale. Neurological: Reports dizziness. Historical: - Allergies: contrast; Zithromax Z-Koko; - Home Meds: 1. aspirin 325 mg Oral TbEC 1 tab once daily 2. hydrochlorothiazide 12.5 mg Oral tab once daily 3. levothyroxine 75 mcg Oral cap 1 cap once daily 4. losartan 100 mg oral tab 1 tab once daily 5. omeprazole 20 mg Oral cpDR 1 cap once daily 6. simvastatin 20 mg Oral tab 1 tab once daily 7. tramadol 50 mg Oral TbDL as needed - PMHx: Hypercholesterolemia; Hypertension; Hypothyroidism; TIA; - PSHx: CARPAL TUNNEL REPAIR; Breast Reduction; - Social history: Smoking status: Patient states former smoker of tobacco. No barriers to communication noted, The patient speaks fluent Kazakh, Speaks appropriately for age. - Family history: Not pertinent. - : The pt / caregiver states he / she is not on anticoagulants. Home medication list is obtained from the patient. - Exposure Risk Screening:: None identified. Screenin:36 Screening information is obtained from the patient. Fall risk: No risks identified. dsf Assistance ADL's: requires no assistance with activities of daily living. Abuse/DV Screen: The patient / caregiver reports he/she is: not in a situation that causes fear, pain or injury. Nutritional screening: No deficits noted. Advance Directives: Currently, there is no health care proxy. home support is adequate. Assessment: 09:33 General: Appears in no apparent distress, Behavior is flat. Pain: Location: head Pain dsf currently is 8 out of 10 on a pain scale. Neurological: Level of Consciousness is awake, alert, Oriented to person, place, none. Cardiovascular: No deficits noted. Respiratory: No deficits noted. Derm: Skin is pink, warm & dry. 10:27 Adult Sepsis Screening: The patient does not have new or worsening altered mentation. dsf Patient's respiratory rate is less than 22. Systolic blood pressure is greater than 100. Patient has a qSOFA score of 0- Negative Sepsis Screen. General: Appears in no apparent distress, Behavior is flat. Pain: Location: head Pain currently is 6 out of 10 on a pain scale. Neurological: Level of Consciousness is awake, alert, Oriented to person, place, time. Cardiovascular: Capillary refill < 3 seconds Heart tones S1 S2 present Rhythm is sinus bradycardia No ectopy. Respiratory: Airway is patent Respiratory effort is even, unlabored, Respiratory pattern is regular, symmetrical, Breath sounds are clear bilaterally. GI: Abdomen is non- distended Bowel sounds present X 4 quads. Abd is soft and non tender X 4 quads. Derm: Skin is pink, warm & dry. 10:45 General: pt drinking devan mahesh without difficulty . dsf 11:35 Adult Sepsis Screening: The patient does not have new or worsening altered mentation. dsf Patient's respiratory rate is less than 22. Systolic blood pressure is greater than 100. Patient has a qSOFA score of 0- Negative Sepsis Screen. General: Appears in no apparent distress, comfortable, Behavior is appropriate for age, cooperative, flat. Pain: Location: head Pain currently is 4 out of 10 on a pain scale. Neurological: Level of Consciousness is awake, alert. Cardiovascular: Capillary refill < 3 seconds. Respiratory: Airway is patent Respiratory effort is even, unlabored, Respiratory pattern is regular, symmetrical. Derm: Skin is pink, warm & dry. 12:35 General: Appears in no apparent distress, Behavior is appropriate for age, cooperative, hs1 flat. Neurological: Level of Consciousness is awake, alert. Cardiovascular: Capillary refill < 3 seconds. Respiratory: Airway is patent Respiratory effort is even, unlabored, Respiratory pattern is regular, symmetrical. Derm: Skin is pink, warm & dry. 13:10 General: Steven Serrano PFS in talking to patient and significant other . dsf 13:36 Adult Sepsis Screening: The patient does not have new or worsening altered mentation. dsf Patient's respiratory rate is less than 22. Systolic blood pressure is greater than 100. Patient has a qSOFA score of 0- Negative Sepsis Screen. General: Appears in no apparent distress, comfortable, Behavior is appropriate for age, cooperative, flat. Pain: Location: head Pain currently is 1 out of 10 on a pain scale. Neurological: Level of Consciousness is awake, alert, Oriented to person, place, time. Cardiovascular: No deficits noted. Respiratory: No deficits noted. Derm: Skin is pink, warm & dry. Vital Signs: 08:37 BP 171 / 83; Pulse 68; Resp 16; Temp 98.2(TE); Pulse Ox 98% on R/A; Weight 117.93 kg mlb1 (R); Height 5 ft. 6 in. (167.64 cm) (R); Pain 9/10; 10:06 Pulse 52 MON; dsf 10:06 BP 151 / 69 (auto/); dsf 10:07 Pulse 52 MON; Pulse Ox 98% ; dsf 10:07 Pain 6/10; dsf 10:26 BP 151 / 65 (auto/); dsf 10:27 Pulse 56 MON; Pulse Ox 97% ; dsf 11:41 Pulse 58 MON; Pulse Ox 97% ; dsf 11:41 BP 120 / 56 (auto/); dsf 11:56 BP 120 / 54 (auto/); dsf 11:56 Pulse 52 MON; Pulse Ox 96% ; dsf 12:49 BP 115 / 57; Pulse 71; Resp 16; Temp 97.2; Pulse Ox 97% ; Pain 3/10; cmb 08:37 Body Mass Index 41.96 (117.93 kg, 167.64 cm) mlb1 Vitals: 08:37 Log In Time: July 19, 2016 at 08:28. mlb1 ED Course: 08:31 Patient visited by Felicia Ha Reg. lg 08:31 Mervin Gaston is Private Physician. lg 08:31 Patient moved to Waiting lg 08:33 Patient visited by Shaka Romero, RN. mlb1 08:35 Triage Initiated mlb1 08:37 Patient visited by Shaka Romero, RN. mlb1 08:38 Patient moved to 8 mlb1 09:04 Elizabeth Covington MD is Attending Physician. sd1 09:08 Patient visited by Elizabeth Covington MD. sd1 09:30 EKG done. (by ED staff). Reviewed by Elizabeth Covington MD. cmb 09:33 Inserted saline lock: 20 gauge in left antecubital area The patient tolerated the dsf procedure well. 09:34 CBC with Diff Sent. dsf 09:34 Cardiac Injury Profile Sent. dsf 09:34 Liver Profile Sent. dsf 09:34 MED Profile Sent. dsf 09:34 Thyroid Stimulating Hormone Sent. dsf 09:34 Troponin Sent. dsf 09:35 Pt greeted and oriented to ED. Patient advised of names of staff involved in care, cmb location of call corral, wait times and NPO status. Patient has correct armband on for positive identification. Placed in gown. Bed in low position. Call light in reach. Side rails up X2. ekg monitor on. Pulse ox on. NIBP on. 09:36 Patient visited by Rachel Cherry. cmb 09:[address] dsf 09:49 [facility] Payment Agreement was scanned into [employer] and attached to record. mm15 09:58 Patient moved to 8 dsf 10:07 Patient visited by Rachel Cherry. cmb 10:28 Patient visited by Guillermina Randolph,JAVON. dsf 10:49 EKG-ADULT Returned. EDMS 10:52 CT Head Without Contrast Returned. EDMS 11:36 Patient visited by Guillermina Randolph,JAVON. dsf 12:39 Patient visited by Kassi Head RN. hs1 12:49 Patient visited by Rachel Cherry. cmb 13:27 Mervin Gaston is Referral Physician. sd1 13:27 Racheal Naqvi MD is Referral Physician. sd1 13:27 Referral list, As provided by PFS is Referral Physician. sd1 13:37 The patient / caregiver is instructed regarding the plan of care and ED course. dsf 13:37 Discontinued lock intact, bleeding controlled, pressure dressing applied, No dsf redness/swelling at site. No procedures done that require assistance. 07/21 08:47 T-Sheet-- Draft Copy was scanned into [employer] and attached to record. lg 08:48 ECG/EKG was scanned into [employer] and attached to record. lg Administered Medications: 07/19 09:34 Drug: Metoclopramide 10 mg [metoclopramide 5 mg/mL injection solution] Route: IV; Rate: dsf 40 mg/hr; Infused Over: 15 mins; Site: left antecubital; 10:07 Follow up: Pain 6/10 Adult; IV Status: Completed infusion dsf 09:34 Drug: diphenhydrAMINE 25 mg [diphenhydramine 50 mg/mL injection solution (0.5 mL)] dsf Route: IVP; Site: left antecubital; 09:35 Drug: NS 0.9% 1000 ml [sodium chloride 0.9 % injection solution] Route: IV; Rate: 150 dsf mL/hr; Site: left antecubital; 10:27 Drug: NS 0.9% 1000 ml [sodium chloride 0.9 % injection solution] Route: IV; Rate: dsf bolus; Site: left antecubital; 12:01 Follow up: IV Status: Completed infusion; IV Intake: 1000ml dsf Intake: 12:01 IV: 1000.00ml; Total: 1000.00ml. dsf Order Results: Lab Order: CBC with Diff; SPEC'M 07/19/16 09:32 Test: WHITE BLOOD COUNT; Value: 9.5; Range: 4.0-10.0; Units: K/mm3; Status: F Test: RED BLOOD COUNT; Value: 5.01; Range: 4.00-5.40; Units: M/mm3; Status: F Test: HEMOGLOBIN; Value: 14.4; Range: 12.0-16.0; Units: g/dl; Status: F Test: HEMATOCRIT; Value: 44.0; Range: 36.0-47.0; Units: %; Status: F Test: MEAN CORPUSCULAR VOLUME; Value: 87.8; Range: 80.0-96.0; Units: fl; Status: F Test: MEAN CORPUSCULAR HEMOGLOBIN; Value: 28.8; Range: 27.0-33.0; Units: pg; Status: F Test: MEAN CORPUSCULAR HGB CONC; Value: 32.8; Range: 32.0-36.5; Units: g/dl; Status: F Test: RED CELL DISTRIBUTION WIDTH; Value: 12.7; Range: 11.5-14.5; Units: %; Status: F Test: PLATELET COUNT, AUTOMATED; Value: 178; Range: 150-450; Units: k/mm3; Status: F Test: NEUTROPHILS %; Value: 74.4; Range: 36.0-66.0; Abnormal: Above high normal; Units: %; Status: F Test: LYMPH %; Value: 15.6; Range: 24.0-44.0; Abnormal: Below low normal; Units: %; Status: F Test: MONO %; Value: 5.4; Range: 0.0-5.0; Abnormal: Above high normal; Units: %; Status: F Test: EOS %; Value: 2.3; Range: 0.0-3.0; Units: %; Status: F Test: BASO %; Value: 0.3; Range: 0.0-1.0; Units: %; Status: F Test: LARGE UNSTAINED CELL %; Value: 1.9; Range: 0.0-4.0; Units: %; Status: F Test: NEUTROPHILS #; Value: 7.1; Range: 1.8-7.7; Units: K/mm3; Status: F Test: LYMPH #; Value: 1.5; Range: 1.5-4.5; Units: K/mm3; Status: F Test: MONO #; Value: 0.5; Range: 0.0-0.8; Units: K/mm3; Status: F Test: EOS #; Value: 0.2; Range: 0.0-0.50; Units: K/mm3; Status: F Test: BASO #; Value: 0.0; Range: 0.0-0.2; Units: K/mm3; Status: F Test: LARGE UNSTAINED CELL #; Value: 0.2; Range: 0.0-0.4; Units: K/mm3; Status: F Lab Order: Cardiac Injury Profile; [facility] 07/19/16 09:32 Test: CPK CREATINE PHOSPHOKINASE; Value: 22; Range: 26-192; Abnormal: Below low normal; Units: U/L; Status: F Test: CK-MB VALUE MASS; Value: 1.0; Range: 0.0-3.6; Units: NG/ML; Status: F Test: MB/CK RELATIVE INDEX; Value: 4.54; Range: < OR =4; Abnormal: Above high normal; Status: F Test Note: ; DIAGNOSIS CRITERIA MMB ng/ml Relative Index (RI) NON-AMI < or = 5 N/A GONZALEZ ZONE > 5 < or = 4 AMI > 5 > 4 Lab Order: Liver Profile; [facility] 07/19/16 09:32 Test: AST/SGOT; Value: 15; Range: 15-37; Units: U/L; Status: F Test: ALT/SGPT; Value: 22; Range: 12-78; Units: U/L; Status: F Test: ALKALINE PHOSPHATASE; Value: 108; Range: 45-117; Units: U/L; Status: F Test: BILIRUBIN,TOTAL; Value: 0.6; Range: 0.2-1.0; Units: MG/DL; Status: F Test: BILIRUBIN,DIRECT; Value: 0.2; Range: 0.0-0.2; Units: MG/DL; Status: F Test: TOTAL PROTEIN; Value: 6.8; Range: 6.4-8.2; Units: GM/DL; Status: F Test: ALBUMIN; Value: 3.5; Range: 3.2-5.2; Units: GM/DL; Status: F Test: ALBUMIN/GLOBULIN RATIO; Value: 1.06; Range: 1.00-1.93; Status: F Lab Order: MED Profile; [facility] 07/19/16 09:32 Test: GLUCOSE, FASTING; Value: 113; Range: 80-110; Abnormal: Above high normal; Units: MG/DL; Status: F Test: BLOOD UREA NITROGEN; Value: 9; Range: 7-18; Units: MG/DL; Status: F Test: CREATININE FOR GFR; Value: 1.00; Range: 0.55-1.02; Units: MG/DL; Status: F Test: GLOMERULAR FILTRATION RATE; Value: 58.9; Range: >45; Status: F Test: SODIUM LEVEL; Value: 140; Range: 136-145; Units: MEQ/L; Status: F Test: POTASSIUM SERUM; Value: 3.6; Range: 3.5-5.1; Units: MEQ/L; Status: F Test: CHLORIDE LEVEL; Value: 103; Range: 98-107; Units: MEQ/L; Status: F Test: CARBON DIOXIDE LEVEL; Value: 29; Range: 21-32; Units: MEQ/L; Status: F Test: ANION GAP; Value: 8; Range: 8-16; Units: MEQ/L; Status: F Test: CALCIUM LEVEL; Value: 9.6; Range: 8.8-10.2; Units: MG/DL; Status: F Test Note: ; Units are mL/min/1.73 m2 Chronic Kidney Disease Staging per NKF: Stage I & II GFR >=60 Normal to Mildly Decreased Stage III GFR 30-59 Moderately Decreased Stage IV GFR 15-29 Severely Decreased Stage V GFR <15 Very Little GFR Left ESRD GFR <15 on PEDIATRIC HOSPITALIST Lab Order: Thyroid Stimulating Hormone; SPEC'M 07/19/16 09:32 Test: THYROID STIMULATING HORMONE; Value: 1.130; Range: 0.358-3.740; Units: uIU/ML; Status: F Lab Order: Troponin; SPEC'M 07/19/16 09:32 Test: TROPONIN I; Value: < 0.02; Range: < 0.10; Units: NG/ML; Status: F Test Note: ; Troponin I Reference Interval for AUM Cardiovascular LOCI: 99th Percentile= 0.00-0.045 ng/ml Risk Stratification: <= 0.10 ng/ml Decreased Risk for Adverse Clinical Events. 0.10-1.50 ng/ml Increased Risk for Adverse Clinical Events. Evaluation of additional criterion and/or repeat testing in 2-6 hours is suggested to rule out myocardial damage. >= 1.50 ng/ml Indicative of Myocardial Injury. Radiology Order: CT Head Without Contrast Test: CT Head Without Contrast REASON FOR EXAMINATION: HEADACHE DIZZY ; Clinical: Headache.; ; Comparison 06/12/2014.; ; Findings:; Age-related atrophy and microvascular ischemic changes are appreciated. The; ventricles and sulci are symmetric. Gonzalez-white differentiation is maintained.; There is no evidence for acute intracranial hemorrhage, mass/mass effect,; pathology or infarction. No extra-axial fluid collection. Calvarium is intact.; Paranasal sinuses and mastoid air cells are clear.; ; Impression:; Age related atrophy and microvascular ischemic changes.; No acute intracranial hemorrhage, infarction, or mass/mass effect.; ; ; ; ; Signed by; Bharat Alva MD 07/19/2016 10:07 A; Radiology Order: EKG-ADULT Test: EKG-ADULT REASON FOR EXAMINATION: WEAKNESS; Stationary ECG Study; [facility] - ED; ; Test Date: 2016-07-19; Pat Name: RED FORREST Department:; Room: -; Gender: F Cable Strander: jen; : 1950 Requested By: Elizabeth Covington; Order Number: [id number] Reading MD: Elizabeth Covington; Measurements; Intervals [place]; Rate: 61 P: 83; ND: 203 QRS: -4; QRSD: 89 T: 52; QT: 440; QTc: 446; Interpretive Statements; SINUS RHYTHM; NONSPECIFIC T-WAVE ABNORMALITY; DECREASED RATE 06/12/14; Electronically Signed On 07-19-2016 10:06:48 EST by Elizabeth Covington; Outcome: 13:27 Discharge ordered by Provider. sd1 13:37 Discharge Assessment: Patient awake, alert and oriented x 3. No cognitive and/or dsf functional deficits noted. Patient verbalized understanding of disposition instructions. patient administered narcotics - no. The following High Risk Discharge criteria are identified: None. Discharged to home ambulatory. Condition: stable. Discharge instructions given to patient, Instructed on discharge instructions, follow up and referral plans. Demonstrated understanding of instructions, Pt was receptive of discharge instructions/ teaching. CT Study completed. Property sent home with patient. 13:37 Patient left the ED. dsf Signatures: Dispatcher [employer] EDElizabeth Hahn MD MD sd1 Felicia Ha, Reg Reg lg Nick, Shaka Nguyễn RN RN mlb1 Kassi Head RN RN hs1 Guillermina Randolph RN RN dsf Rachel Cherry cmb Renay Ziegler mm15 Chart Complete MTDD
--- NOTE | 2016-07-21 14:38 | EDDOCDS ---
Physician Documentation [facility] Name: Candice Avila Age: 65 yrs Sex: Female : 1950 Arrival Date: 07/19/2016 Time: 08:30 Bed 8 Private MD: Mervin Gaston M.D. Disposition: 07/19/16 13:27 Discharged to Home/Self Care. Impression: Headache, Adjustment disorder with depressed mood. - Condition is Stable. - Discharge Instructions: Adjustment Disorder, Migraine Headache, Migraine Headache, [id number], General Headache Without Cause, [id number]. - Medication Reconciliation, Local Pharmacy Hours form. - Follow up: Mervin Gaston; When: 1 - 2 days. Follow up: ; When: Call to arrange an appointment. Follow up: As provided by PFS Referral list; When: Call to arrange an appointment. - Problem is an acute exacerbation. - Symptoms have improved. Historical: - Allergies: contrast; Zithromax Z-Koko; - Home Meds: 1. aspirin 325 mg Oral TbEC 1 tab once daily 2. hydrochlorothiazide 12.5 mg Oral tab once daily 3. levothyroxine 75 mcg Oral cap 1 cap once daily 4. losartan 100 mg oral tab 1 tab once daily 5. omeprazole 20 mg Oral cpDR 1 cap once daily 6. simvastatin 20 mg Oral tab 1 tab once daily 7. tramadol 50 mg Oral TbDL as needed - PMHx: Hypercholesterolemia; Hypertension; Hypothyroidism; TIA; - PSHx: CARPAL TUNNEL REPAIR; Breast Reduction; - Social history: Smoking status: Patient states former smoker of tobacco. No barriers to communication noted, The patient speaks fluent Paraguayan, Speaks appropriately for age. - Family history: Not pertinent. - : The pt / caregiver states he / she is not on anticoagulants. Home medication list is obtained from the patient. - Exposure Risk Screening:: None identified. Vital Signs: 07/19 08:37 BP 171 / 83; Pulse 68; Resp 16; Temp 98.2(TE); Pulse Ox 98% on R/A; Weight 117.93 kg / mlb1 259.99 lbs (R); Height 5 ft. 6 in. (167.64 cm) (R); Pain 9/10; 10:06 Pulse 52 MON; dsf 10:06 BP 151 / 69 (auto/); dsf 10:07 Pulse 52 MON; Pulse Ox 98% ; dsf 10:07 Pain 6/10; dsf 10:26 BP 151 / 65 (auto/); dsf 10:27 Pulse 56 MON; Pulse Ox 97% ; dsf 11:41 Pulse 58 MON; Pulse Ox 97% ; dsf 11:41 BP 120 / 56 (auto/); dsf 11:56 BP 120 / 54 (auto/); dsf 11:56 Pulse 52 MON; Pulse Ox 96% ; dsf 12:49 BP 115 / 57; Pulse 71; Resp 16; Temp 97.2; Pulse Ox 97% ; Pain 3/10; cmb 08:37 Body Mass Index 41.96 (117.93 kg, 167.64 cm) mlb1 MDM: 09:20 NS 0.9% 1000 ml IV at 150 mL/hr continuous ordered. sd1 09:20 Metoclopramide 10 mg IV at 40 mg/hr once over 15 mins ordered. sd1 09:20 diphenhydrAMINE 25 mg IVP once ordered. sd1 09:20 Weighbridge Operator/Pulse Ox/q 15 min VS ordered. sd1 09:20 IV Saline Lock ordered. sd1 09:20 Rhythm Strip to chart ordered. sd1 09:21 CT Head Without Contrast Ordered. EDMS 09:21 CBC with Diff Ordered. EDMS 09:21 Cardiac Injury Profile Ordered. EDMS 09:21 Liver Profile Ordered. EDMS 09:21 MED Profile Ordered. EDMS 09:21 Thyroid Stimulating Hormone Ordered. EDMS 09:21 Troponin Ordered. EDMS 09:22 ECG WITH READING ER PHYS+CARDIAG ordered. EDMS 09:37 Consult: Service Station Cashier ordered. sd1 09:47 Financial registration complete. mm15 09:49 [facility] Payment Agreement was scanned into [employer] and attached to record. mm15 10:18 CBC with Diff Reviewed. sd1 10:18 MED Profile Reviewed. sd1 10:18 Liver Profile Reviewed. sd1 10:18 Troponin Reviewed. sd1 10:19 NS 0.9% 1000 ml IV at 250 mL/hr continuous ordered. sd1 10:19 NS 0.9% 1000 ml IV at bolus once ordered. sd1 10:33 Cardiac Injury Profile Reviewed. sd1 10:33 MED Profile Reviewed. sd1 10:33 Liver Profile Reviewed. sd1 10:33 Thyroid Stimulating Hormone Reviewed. sd1 10:33 Troponin Reviewed. sd1 10:42 Fluid Challenge ordered. sd1 11:49 REGULAR+DIET ordered. EDOR 07/21 08:47 T-Sheet-- Draft Copy was scanned into [employer] and attached to record. lg 08:48 ECG/EKG was scanned into [employer] and attached to record. lg Administered Medications: 07/19 09:34 Drug: Metoclopramide 10 mg [metoclopramide 5 mg/mL injection solution] Route: IV; Rate: dsf 40 mg/hr; Infused Over: 15 mins; Site: left antecubital; 10:07 Follow up: Pain 11/04 Adult; IV Status: Completed infusion dsf 09:34 Drug: diphenhydrAMINE 25 mg [diphenhydramine 50 mg/mL injection solution (0.5 mL)] dsf Route: IVP; Site: left antecubital; 09:35 Drug: NS 0.9% 1000 ml [sodium chloride 0.9 % injection solution] Route: IV; Rate: 150 dsf mL/hr; Site: left antecubital; 10:27 Drug: NS 0.9% 1000 ml [sodium chloride 0.9 % injection solution] Route: IV; Rate: dsf bolus; Site: left antecubital; 12:01 Follow up: IV Status: Completed infusion; IV Intake: 1000ml dsf Signatures: Dispatcher [employer] [facility] Elizabeth Covington MD MD sd1 Felicia Ha, Amadeo Reg lg Shaka Romero RN RN mlb1 Guillermina Randolph RN RN dsf Renay Ziegler mm15 The chart was reviewed and I authenticate all verbal orders and agree with the evaluation and treatment provided.Attachments: 09:49 [facility] Payment Agreement mm15 07/21 08:47 T-Sheet-- Draft Copy lg 08:48 ECG/EKG lg Chart Complete MTDD
--- NOTE | 2016-07-21 14:38 | EDDOCDS ---
Physician Documentation [facility] Name: Candice Avila Age: 65 yrs Sex: Female : 1950 Arrival Date: 07/19/2016 Time: 08:30 Bed 8 Private MD: Mervin Gaston M.D. Disposition: 07/19/16 13:27 Discharged to Home/Self Care. Impression: Headache, Adjustment disorder with depressed mood. - Condition is Stable. - Discharge Instructions: Adjustment Disorder, Migraine Headache, Migraine Headache, [id number], General Headache Without Cause, [id number]. - Medication Reconciliation, Local Pharmacy Hours form. - Follow up: Mervin Gaston; When: 1 - 2 days. Follow up: ; When: Call to arrange an appointment. Follow up: As provided by [facility] Referral list; When: Call to arrange an appointment. - Problem is an acute exacerbation. - Symptoms have improved. Historical: - Allergies: contrast; Zithromax Z-Koko; - Home Meds: 1. aspirin 325 mg Oral TbEC 1 tab once daily 2. hydrochlorothiazide 12.5 mg Oral tab once daily 3. levothyroxine 75 mcg Oral cap 1 cap once daily 4. losartan 100 mg oral tab 1 tab once daily 5. omeprazole 20 mg Oral cpDR 1 cap once daily 6. simvastatin 20 mg Oral tab 1 tab once daily 7. tramadol 50 mg Oral TbDL as needed - PMHx: Hypercholesterolemia; Hypertension; Hypothyroidism; TIA; - PSHx: CARPAL TUNNEL REPAIR; Breast Reduction; - Social history: Smoking status: Patient states former smoker of tobacco. No barriers to communication noted, The patient speaks fluent Fijian, Speaks appropriately for age. - Family history: Not pertinent. - : The pt / caregiver states he / she is not on anticoagulants. Home medication list is obtained from the patient. - Exposure Risk Screening:: None identified. Vital Signs: 07/19 08:37 BP 171 / 83; Pulse 68; Resp 16; Temp 98.2(TE); Pulse Ox 98% on R/A; Weight 117.93 kg / mlb1 259.99 lbs (R); Height 5 ft. 6 in. (167.64 cm) (R); Pain 9/10; 10:06 Pulse 52 MON; dsf 10:06 BP 151 / 69 (auto/); dsf 10:07 Pulse 52 MON; Pulse Ox 98% ; dsf 10:07 Pain 6/10; dsf 10:26 BP 151 / 65 (auto/); dsf 10:27 Pulse 56 MON; Pulse Ox 97% ; dsf 11:41 Pulse 58 MON; Pulse Ox 97% ; dsf 11:41 BP 120 / 56 (auto/); dsf 11:56 BP 120 / 54 (auto/); dsf 11:56 Pulse 52 MON; Pulse Ox 96% ; dsf 12:49 BP 115 / 57; Pulse 71; Resp 16; Temp 97.2; Pulse Ox 97% ; Pain 3/10; cmb 08:37 Body Mass Index 41.96 (117.93 kg, 167.64 cm) mlb1 MDM: 09:20 NS 0.9% 1000 ml IV at 150 mL/hr continuous ordered. sd1 09:20 Metoclopramide 10 mg IV at 40 mg/hr once over 15 mins ordered. sd1 09:20 diphenhydrAMINE 25 mg IVP once ordered. sd1 09:20 Gear Generator Set Up Operator/Pulse Ox/q 15 min VS ordered. sd1 09:20 IV Saline Lock ordered. sd1 09:20 Rhythm Strip to chart ordered. sd1 09:21 CT Head Without Contrast Ordered. EDMS 09:21 CBC with Diff Ordered. EDMS 09:21 Cardiac Injury Profile Ordered. EDMS 09:21 Liver Profile Ordered. EDMS 09:21 MED Profile Ordered. EDMS 09:21 Thyroid Stimulating Hormone Ordered. EDMS 09:21 Troponin Ordered. EDMS 09:22 ECG WITH READING ER PHYS+CARDIAG ordered. EDMS 09:37 Consult: Foundation Assistant ordered. sd1 09:47 Financial registration complete. mm15 09:49 [facility] Payment Agreement was scanned into [employer] and attached to record. mm15 10:18 CBC with Diff Reviewed. sd1 10:18 MED Profile Reviewed. sd1 10:18 Liver Profile Reviewed. sd1 10:18 Troponin Reviewed. sd1 10:19 NS 0.9% 1000 ml IV at 250 mL/hr continuous ordered. sd1 10:19 NS 0.9% 1000 ml IV at bolus once ordered. sd1 10:33 Cardiac Injury Profile Reviewed. sd1 10:33 MED Profile Reviewed. sd1 10:33 Liver Profile Reviewed. sd1 10:33 Thyroid Stimulating Hormone Reviewed. sd1 10:33 Troponin Reviewed. sd1 10:42 Fluid Challenge ordered. sd1 11:49 REGULAR+DIET ordered. EDWY 07/21 08:47 T-Sheet-- Draft Copy was scanned into [employer] and attached to record. lg 08:48 ECG/EKG was scanned into [employer] and attached to record. lg Administered Medications: 07/19 09:34 Drug: Metoclopramide 10 mg [metoclopramide 5 mg/mL injection solution] Route: IV; Rate: dsf 40 mg/hr; Infused Over: 15 mins; Site: left antecubital; 10:07 Follow up: Pain 11/04 Adult; IV Status: Completed infusion dsf 09:34 Drug: diphenhydrAMINE 25 mg [diphenhydramine 50 mg/mL injection solution (0.5 mL)] dsf Route: IVP; Site: left antecubital; 09:35 Drug: NS 0.9% 1000 ml [sodium chloride 0.9 % injection solution] Route: IV; Rate: 150 dsf mL/hr; Site: left antecubital; 10:27 Drug: NS 0.9% 1000 ml [sodium chloride 0.9 % injection solution] Route: IV; Rate: dsf bolus; Site: left antecubital; 12:01 Follow up: IV Status: Completed infusion; IV Intake: 1000ml dsf Signatures: Dispatcher [employer] [facility] Elizabeth Covington MD MD sd1 Felicia Ha, Amadeo Reg lg Shaka Romero RN RN mlb1 Guillermina Randolph RN RN dsf Renay Ziegler mm15 The chart was reviewed and I authenticate all verbal orders and agree with the evaluation and treatment provided.Attachments: 09:49 [facility] Payment Agreement mm15 07/21 08:47 T-Sheet-- Draft Copy lg 08:48 ECG/EKG lg Chart Complete MTDD
== END 2016-07-19 13:37 | disposition home or self-care (01) ==
LOC: M ED 08:30
DX: R51 Headache (principal); F32.9 Major depressive disorder, single episode, unspecified; E78.00 Pure hypercholesterolemia, unspecified; I10 Essential (primary) hypertension; E03.9 Hypothyroidism, unspecified; Z86.73 Personal history of transient ischemic attack (TIA), and cerebral infarction without residual deficits; Z87.891 Personal history of nicotine dependence; Z79.82 Long term (current) use of aspirin; Z79.899 Other long term (current) drug therapy; Z88.1 Allergy status to other antibiotic agents; Z91.041 Radiographic dye allergy status
CPT/HCPCS: 36415; 70450; 80048; 80076; 82550; 82553; 84443; 84484; 85025; 93005; 93041; 96361; 96365; 96375; 99285; J1200; J2765

== ENCOUNTER → 2016-11-16 | Outpatient (CLI) | payer MEDICARE ==
--- NOTE | 2016-11-16 16:16 | REP ---
Right hand four views: There is mild osteoarthritis of the DIP and PIP articulations. The MCP articulations and carpal articulations are unremarkable. Mineralization is normal. No calcifications or foreign bodies. No fracture or dislocation. Impression: Osteoarthritis as described. Otherwise, negative right hand. Signed by Campbell Kennedy MD 11/16/2016 04:07 P
== END ==
LOC: M WUC 15:06
PROVIDERS: ATTEND Physician Assistant
DX: M25.541 Pain in joints of right hand (principal); M19.041 Primary osteoarthritis, right hand

== ENCOUNTER → 2016-11-24 | Outpatient (CLI) | payer MEDICARE ==
--- NOTE | 2016-11-24 13:49 | REPMRS ---
Patient History The patient states she had a clinical breast exam in 10/2016. Patient is postmenopausal. Family history of pancreatic cancer in father and colorectal cancer in daughter at age 39. Reductions of both breasts, 2008. Digital Woman Screen Mammo: November 24, 2016 - Exam #: [id number] Bilateral CC and MLO view(s) were taken. Technologist: Lani Caceres Technologist Prior study comparison: December 25, 2014, digital woman screen mammo performed at [facility]. October 23, 2012, digital woman screen mammo performed at [facility]. November 03, 2011, digital woman screen mammo performed at [facility]. FINDINGS: The breast tissue is almost entirely fat. There has been no change in the appearance of the mammogram from the prior studies. There is no interval development of dominant mass, architectural distortion, or clustered microcalcification typical of malignancy. ASSESSMENT: BI-RADS/ACR category 1 mammogram. Negative. Recommendation Routine screening mammogram of both breasts in 1 year (for women over age 40). This mammogram was interpreted with the aid of an FDA-approved computer-aided dectection system. Electronically Signed By: Aly Hood MD 11/24/16 [id number]
== END ==
LOC: M WHC 08:48
PROVIDERS: ATTEND Nurse Practitioner Family
DX: Z01.419 Encounter for gynecological examination (general) (routine) without abnormal findings (principal); Z12.31 Encounter for screening mammogram for malignant neoplasm of breast; Z12.12 Encounter for screening for malignant neoplasm of rectum
CPT/HCPCS: 82270; G0101; G0202

== ENCOUNTER → 2017-02-10 | Outpatient (REF) | payer MEDICARE | LOC: M LAB REF 13:24 | PROVIDERS: ATTEND Physician Assistant | DX: J06.9 Acute upper respiratory infection, unspecified (principal) ==

== ENCOUNTER → 2017-07-11 | Outpatient (REF) | payer MEDICARE | LOC: M LABDRAW1 13:53 | DX: E89.0 Postprocedural hypothyroidism (principal) | CPT/HCPCS: 84443 ==

== ENCOUNTER 2018-01-26 19:22 | Emergency (ER) | payer OTHER, MEDICARE | END 2018-01-26 20:33 | disposition home or self-care (01) | LOC: M ED 19:22 | DX: S80.12XA Contusion of left lower leg, initial encounter (principal); W22.8XXA Striking against or struck by other objects, initial encounter; Y92.099 Unspecified place in other non-institutional residence as the place of occurrence of the external cause; Y93.9 Activity, unspecified; Y99.9 Unspecified external cause status; I10 Essential (primary) hypertension; M17.12 Unilateral primary osteoarthritis, left knee; M19.072 Primary osteoarthritis, left ankle and foot; Z79.82 Long term (current) use of aspirin; Z79.899 Other long term (current) drug therapy; Z88.1 Allergy status to other antibiotic agents; Z91.041 Radiographic dye allergy status | CPT/HCPCS: 73590 ==

== ENCOUNTER 2018-02-15 08:19 | Day surgery (SDC) | payer OTHER ==
[2018-02-15] MEDS: NS 1,000 ML IV (06:00)
[~2018-02-15 08:19] MED LIST changes: -ACET65TA; -ASPI325T; -AVAP150T; -CALCCHW12; -CALCUIM; -HYDR25TA6; +LIDOCAINE 2% INJ 100 MG/5 ML SDV (FOR ANES.) As Ordered; -XANA0.25; -ZOCO20TA; -[UNRECOGNIZED DRUG - OTHER]
[2018-02-15] MEDS ORDERED: PROPOFOL 200 MG/20 ML VIAL As Ordered ×2 (09:13→09:55)
== END 2018-02-15 10:33 | disposition home or self-care (01) ==
LOC: M OPP 08:19
DX: Z12.11 Encounter for screening for malignant neoplasm of colon (principal); Z80.0 Family history of malignant neoplasm of digestive organs; K64.0 First degree hemorrhoids; K57.30 Diverticulosis of large intestine without perforation or abscess without bleeding; R00.8 Other abnormalities of heart beat; I10 Essential (primary) hypertension; E78.5 Hyperlipidemia, unspecified; E03.9 Hypothyroidism, unspecified; K21.9 Gastro-esophageal reflux disease without esophagitis; R12 Heartburn; M54.5 Low back pain; F32.9 Major depressive disorder, single episode, unspecified; Z86.73 Personal history of transient ischemic attack (TIA), and cerebral infarction without residual deficits; Z78.0 Asymptomatic menopausal state; G47.30 Sleep apnea, unspecified; R06.83 Snoring; Z88.1 Allergy status to other antibiotic agents; Z91.041 Radiographic dye allergy status; Z79.82 Long term (current) use of aspirin; Z79.899 Other long term (current) drug therapy; Z83.71 Family history of colonic polyps; Z80.8 Family history of malignant neoplasm of other organs or systems; Z87.891 Personal history of nicotine dependence
CPT/HCPCS: G0105

== ENCOUNTER → 2018-11-26 | Outpatient (CLI) | payer MEDICARE ==
[~2018-11-26] MED LIST changes: +ACET-683 PO; +ACET65TA; +ASPI-1 PO; +ASPI325T; +AVAP150T; +CALCCHW12; +CALCUIM; +ESCI20TA PO; +HYDR12.55 PO; +HYDR25TA6; +LEVO75TA4 PO; -LIDOCAINE 2% INJ 100 MG/5 ML SDV (FOR ANES.) As Ordered; +LOSA50TA88 PO; +OMEP20CA4 PO; +SIMV20TA2 PO; +TRAM50TA2 PO; +XANA0.25; +ZOCO20TA; +[UNRECOGNIZED DRUG - OTHER]
--- NOTE | 2018-11-26 09:44 | REPMRS ---
Patient History The patient states she had a clinical breast exam in 11/2018. Patient is postmenopausal. Family history of colorectal cancer at age 39 in daughter, pancreatic cancer in father, endometrial cancer at age 50 or over in sister. Reductions of both breasts, 2008. No Hormone Replacement Therapy 3D TOMOSYNTHESIS WAS PERFORMED. The [facility] lifetime risk for breast cancer is 4.2%. Digital Woman Screen Mammo: November 26, 2018 - Exam #: [id number] Bilateral CC and MLO view(s) were taken. Technologist: Valery Bobo, Technologist Prior study comparison: November 24, 2016, digital woman screen mammo performed at [facility]. December 25, 2014, digital woman screen mammo performed at [facility]. FINDINGS: There are scattered fibroglandular densities. There has been no change in the appearance of the mammogram from the prior studies. There is a mild amount of residual fibroglandular tissue which is fairly symmetric. There is no interval development of dominant mass, architectural distortion, or clustered microcalcification suggestive of malignancy. Assessment: BI-RADS/ACR category 1 mammogram. Negative Mammogram. Recommendation Routine screening mammogram in 1 year (for women over age 40). This mammogram was interpreted with the aid of an FDA-approved computer-aided dectection system. Electronically Signed By: Campbell Gonzalez MD 11/26/18 0943
== END ==
LOC: M WHC 08:35
PROVIDERS: ATTEND Nurse Practitioner Family
DX: Z01.419 Encounter for gynecological examination (general) (routine) without abnormal findings (principal); Z12.31 Encounter for screening mammogram for malignant neoplasm of breast; Z78.0 Asymptomatic menopausal state; Z80.0 Family history of malignant neoplasm of digestive organs; Z80.49 Family history of malignant neoplasm of other genital organs; Z98.890 Other specified postprocedural states
CPT/HCPCS: 77063; 77067; G0101

== ENCOUNTER 2019-04-14 10:28 | Day surgery (SDC) | payer MEDICARE ==
[~2019-04-14] VITALS: Ht 162.6 cm; Wt 114.8 kg
[~2019-04-14 10:28] MED LIST changes: +ACETAMINOPHEN 325 MG TAB PO PRN; +BALANCED SALT IRRIGATION SOLUTION 500ML BAG (FOR OR EYE MACHINE) As Ordered ONE; +CYCLOPENTOLATE 2% OPHTH SOLN 2ML BTL OD ONE; +HEALON DUET PRO(HEALON 10MG/ML 0.55ML & HEALON ENDOCOAT 30MG/ML 0.85ML) As Ordered ONE; +LIDOCAINE 1% SDV 5 ML VIAL As Ordered ONE; +LIDOCAINE 3.5 % 1ML OPHTH TOPICAL GEL OU ONE; +MIDAZOLAM INJ 2 MG/2 ML VIAL (J2250) As Ordered ONE; +OFLOXACIN 0.3 % (OCUFLOX) OPTH SOL 5ML OD ONE; +PHENYLEPHRINE 2.5% OPHTH SOL 2ML OD ONE; +PHENYLEPHRINE HCL 10 % OPHTH. SOL 5ML OD PRN; +PROPARACAINE 0.5% OPHTH SOL 15ML XX PRN; +TROPICAMIDE 1% OPHTH SOLN 2ML OD ONE; +fentaNYL 100 MCG/2 ML INJECTION (J3010) As Ordered ONE
[2019-04-14] MEDS: POVIDONE-IODINE 5% OPHTH PREP SOL 30ML As Ordered ONE ×2 (14:00→14:06)
[2019-04-14] MEDS ORDERED: PROPOFOL 200 MG/20 ML VIAL As Ordered ONE (14:04)
[2019-04-14 14:50] VITALS: BP 147/66
[2019-04-14] MEDS ORDERED: AcetaZOLAMIDE 500 MG ER CAP PO ONE (16:00)
[2019-04-14] MEDS ORDERED: TRIMETHOBENZAMIDE 300 MG CAP PO PRN (16:00)
[2019-04-14] MEDS ORDERED: KETOROLAC 0.5% OPHTH SOLN XX ONE (16:00)
--- NOTE | 2019-04-15 08:04 | RO ---
DATE OF PROCEDURE: 04/14/2019 PREPROCEDURE DIAGNOSIS: Age related nuclear cataract right eye. POSTPROCEDURE DIAGNOSIS: Age related nuclear cataract right eye. PROCEDURE: Phacoemulsification and posterior chamber intraocular lens implantation right eye. The lens used was [id number] diopters. SURGEON: Lani Mendoza MD MAMMOGRAPHY TECHNICIAN: ANESTHESIA: Topical with sedation. DESCRIPTION OF PROCEDURE: The patient was prepped and draped in the usual fashion. A lid speculum was placed between the lids. The eye was fixated. A stab incision was made to the anterior chamber, and 1% nonpreserved lidocaine was instilled. Then, viscoelastic was instilled. The eye was re-fixated. A 2.75 mm sapphire keratome was used to make a clear corneal temporal limbal incision. Capsulorrhexis was begun with a 30-gauge bent needle and then carried out in a circular fashion with capsulorrhexis forceps. The lens was hydrodissected, and then the phacoemulsification unit was used to make a groove in the nucleus in two meridians. The nucleus was then cracked into four quadrants. Each quadrant was removed with the phacoemulsification unit. Any remaining cortex was removed with the irrigation and aspiration (I and A) unit. Capsular bag was refilled with viscoelastic. A posterior chamber intraocular lens was placed in the capsular bag without difficulty. Any remaining viscoelastic was removed with the I and A unit. The wound was hydrated, and Miochol and cefuroxime were instilled into the anterior chamber. The patient tolerated the procedure well and went to the recovery room in stable condition.
== END 2019-04-14 15:10 | disposition home or self-care (01) ==
LOC: M SDC 10:28
PROVIDERS: ATTEND Ophthalmology
DX: H25.11 Age-related nuclear cataract, right eye (principal); I10 Essential (primary) hypertension; E78.5 Hyperlipidemia, unspecified; E05.90 Thyrotoxicosis, unspecified without thyrotoxic crisis or storm; E03.9 Hypothyroidism, unspecified; K21.9 Gastro-esophageal reflux disease without esophagitis; F32.9 Major depressive disorder, single episode, unspecified; Z86.73 Personal history of transient ischemic attack (TIA), and cerebral infarction without residual deficits; G47.30 Sleep apnea, unspecified; Z79.82 Long term (current) use of aspirin; Z79.899 Other long term (current) drug therapy; Z92.3 Personal history of irradiation
CPT/HCPCS: 66984; 92015; J2250; J3010; V2632

== ENCOUNTER → 2019-12-02 | Outpatient (CLI) | payer MEDICARE ==
[~2019-12-02] MED LIST changes: -ACETAMINOPHEN 325 MG TAB PO PRN; -BALANCED SALT IRRIGATION SOLUTION 500ML BAG (FOR OR EYE MACHINE) As Ordered ONE; -CYCLOPENTOLATE 2% OPHTH SOLN 2ML BTL OD ONE; -HEALON DUET PRO(HEALON 10MG/ML 0.55ML & HEALON ENDOCOAT 30MG/ML 0.85ML) As Ordered ONE; -LIDOCAINE 1% SDV 5 ML VIAL As Ordered ONE; -LIDOCAINE 3.5 % 1ML OPHTH TOPICAL GEL OU ONE; -MIDAZOLAM INJ 2 MG/2 ML VIAL (J2250) As Ordered ONE; -OFLOXACIN 0.3 % (OCUFLOX) OPTH SOL 5ML OD ONE; +OMEP1CAP73 PO; -OMEP20CA4 PO; -PHENYLEPHRINE 2.5% OPHTH SOL 2ML OD ONE; -PHENYLEPHRINE HCL 10 % OPHTH. SOL 5ML OD PRN; -PROPARACAINE 0.5% OPHTH SOL 15ML XX PRN; -SIMV20TA2 PO; +SIMV20TA22 PO; -TROPICAMIDE 1% OPHTH SOLN 2ML OD ONE; -fentaNYL 100 MCG/2 ML INJECTION (J3010) As Ordered ONE
--- NOTE | 2019-12-02 11:12 | REPMRS ---
Patient History The patient states she had a clinical breast exam in November 2019. Family history of colorectal cancer at age 39 in daughter, pancreatic cancer in father, endometrial cancer at age 50 or over in sister. Reductions of both breasts, 2008. No Hormone Replacement Therapy 3D TOMOSYNTHESIS WAS PERFORMED. [facility] for [facility]%. VOLPARA DENSITY B. Digital Woman Screen Mammo: December 02, 2019 - Exam #: [id number] Bilateral CC and MLO view(s) were taken. Technologist: Jackie Russell, Technologist Prior study comparison: November 26, 2018, bilateral digital woman screen mammo performed at [facility]. November 24, 2016, digital woman screen mammo performed at [facility]. FINDINGS: There are scattered fibroglandular densities. There has been no change in the appearance of the mammogram from the prior studies. There is a mild amount of residual fibroglandular tissue which is fairly symmetric. There is no interval development of dominant mass, architectural distortion, or clustered microcalcification suggestive of malignancy. Assessment: BI-RADS/ACR category 1 mammogram. Negative Mammogram. Recommendation Routine screening mammogram in 1 year (for women over age 40). This mammogram was interpreted with the aid of an FDA-approved computer-aided dectection system. Electronically Signed By: Campbell Gonzalez MD 12/02/19 [id number]
== END ==
LOC: M WHC 08:22
PROVIDERS: ATTEND Nurse Practitioner Family
DX: Z12.31 Encounter for screening mammogram for malignant neoplasm of breast (principal); Z80.0 Family history of malignant neoplasm of digestive organs; Z80.49 Family history of malignant neoplasm of other genital organs

== ENCOUNTER → 2021-02-08 | Outpatient (REF) | payer MEDICARE ==
[~2021-02-08] MED LIST changes: -ESCI20TA PO; +ESCI20TA16 PO
[2021-02-08 21:02] LABS: % LABILE ALKALINE PHOSPHATASE 69.93 %
== END ==
LOC: M LAB REF 17:05
PROVIDERS: ATTEND Family Medicine
DX: R74.8 Abnormal levels of other serum enzymes (principal)

== ENCOUNTER → 2021-11-24 | Outpatient (CLI) | payer MEDICARE ==
[~2021-11-24] MED LIST changes: +LOSA50TA28 PO; -LOSA50TA88 PO
== END ==
LOC: M WHC 12:51
PROVIDERS: ATTEND Family Medicine
DX: Z12.31 Encounter for screening mammogram for malignant neoplasm of breast (principal)

== ENCOUNTER → 2023-01-24 | Outpatient (CLI) | payer MEDICARE | LOC: M WHC 13:42 | PROVIDERS: ATTEND Nurse Practitioner Family | DX: Z12.31 Encounter for screening mammogram for malignant neoplasm of breast (principal) ==

== ENCOUNTER 2023-03-05 10:20 | Day surgery (SDC) | payer MEDICARE ==
[~2023-03-05] VITALS: Ht 167.6 cm; Wt 121.9 kg
[~2023-03-05 10:20] MED LIST changes: +LEXA1TAB2 PO; +NS 1,000 ML IV ONE; +SYNT100T PO
[2023-03-05] MEDS ORDERED: propofoL 200 MG/20 ML VIAL As Ordered ONE (10:44)
[2023-03-05] MEDS ORDERED: LIDOCAINE 2% 100MG/5ML SDV (FOR ANES.) As Ordered ONE (10:44)
[2023-03-05 12:11] VITALS: TEMP 97.8
[2023-03-05 12:34] VITALS: BP 190/89; O2SAT 98
== END 2023-03-05 12:46 | disposition home or self-care (01) ==
LOC: M OPP 10:20
PROVIDERS: ATTEND Internal Medicine Gastroenterology
DX: K64.0 First degree hemorrhoids (principal); Z80.0 Family history of malignant neoplasm of digestive organs; K57.30 Diverticulosis of large intestine without perforation or abscess without bleeding; G47.30 Sleep apnea, unspecified; Z79.02 Long term (current) use of antithrombotics/antiplatelets; Z79.82 Long term (current) use of aspirin; Z79.890 Hormone replacement therapy; Z79.899 Other long term (current) drug therapy; Z88.1 Allergy status to other antibiotic agents; Z91.041 Radiographic dye allergy status

== ENCOUNTER → 2023-04-28 | Outpatient (CLI) | payer MEDICARE ==
[~2023-04-28] MED LIST changes: -NS 1,000 ML IV ONE
== END ==
LOC: M RAD 09:14
PROVIDERS: ATTEND Physician Assistant
DX: J18.9 Pneumonia, unspecified organism (principal)

== ENCOUNTER → 2023-09-21 | Outpatient (CLI) | payer MEDICARE | LOC: M RAD 12:58 | PROVIDERS: ATTEND Physician Assistant | DX: G45.9 Transient cerebral ischemic attack, unspecified (principal) ==

== ENCOUNTER → 2024-05-06 | Outpatient (CLI) | payer MEDICARE | LOC: M WHC 09:08 | PROVIDERS: ATTEND Nurse Practitioner Family | DX: Z12.31 Encounter for screening mammogram for malignant neoplasm of breast (principal); Z13.820 Encounter for screening for osteoporosis; R92.2 Inconclusive mammogram; R92.313 Mammographic fatty tissue density, bilateral breasts; M85.88 Other specified disorders of bone density and structure, other site ==

== ENCOUNTER → 2024-05-19 | Outpatient (CLI) | payer MEDICARE | LOC: M WHC 14:13 | PROVIDERS: ATTEND Nurse Practitioner Family | DX: R92.8 Other abnormal and inconclusive findings on diagnostic imaging of breast (principal); Z13.820 Encounter for screening for osteoporosis ==

== ENCOUNTER → 2024-06-26 | Outpatient (CLI) | payer MEDICARE ==
[2024-06-26 10:10] VITALS: TEMP 99.4
[2024-06-26 11:30] VITALS: BP 130/74; O2SAT 99
== END ==
LOC: M WHCPRO 09:32
PROVIDERS: ATTEND Nurse Practitioner Family
DX: R92.8 Other abnormal and inconclusive findings on diagnostic imaging of breast (principal); C50.412 Malignant neoplasm of upper-outer quadrant of left female breast

== ENCOUNTER → 2024-08-05 | Outpatient (CLI) | payer MEDICARE | LOC: M CARPUL 11:18 | PROVIDERS: ATTEND Student in an Organized Health Care Education/Training Program | DX: C50.912 Malignant neoplasm of unspecified site of left female breast (principal); I34.81 Nonrheumatic mitral (valve) annulus calcification; I36.1 Nonrheumatic tricuspid (valve) insufficiency ==

== ENCOUNTER → 2025-01-08 | Outpatient (CLI) | payer MEDICARE ==
[~2025-01-08] MED LIST changes: +ANAS1TAB2 PO; +LIDO30CR18 TOP; +PROHANCE 279.3MG/ML 15ML VIAL As Ordered ONE; +PROHANCE 279.3MG/ML 5ML VIAL As Ordered ONE; +ROPI0.5T33; +[UNRECOGNIZED DRUG - OTHER]
== END ==
LOC: M RAD 08:45
PROVIDERS: ATTEND Nurse Practitioner
DX: R42 Dizziness and giddiness (principal); H53.8 Other visual disturbances; Z85.3 Personal history of malignant neoplasm of breast
CPT/HCPCS: 70553; A9576

== ENCOUNTER → 2025-01-23 | Outpatient (CLI) | payer MEDICARE ==
[~2025-01-23] MED LIST changes: +LEVO100T5; +METO1TAB87; -PROHANCE 279.3MG/ML 15ML VIAL As Ordered ONE; -PROHANCE 279.3MG/ML 5ML VIAL As Ordered ONE
== END ==
LOC: M LAB 11:43
PROVIDERS: ATTEND Nurse Practitioner Family
DX: Z86.73 Personal history of transient ischemic attack (TIA), and cerebral infarction without residual deficits (principal); R06.02 Shortness of breath; I48.91 Unspecified atrial fibrillation

== ENCOUNTER → 2025-02-05 | Outpatient (CLI) | payer MEDICARE | LOC: M PLAIMG 07:34 | DX: C50.919 Malignant neoplasm of unspecified site of unspecified female breast (principal); R00.1 Bradycardia, unspecified; I08.3 Combined rheumatic disorders of mitral, aortic and tricuspid valves ==

== ENCOUNTER → 2025-02-26 | Outpatient (CLI) | payer MEDICARE ==
[~2025-02-26] MED LIST changes: +ELIQ5TAB PO
== END ==
LOC: M RAD 12:25
DX: C50.919 Malignant neoplasm of unspecified site of unspecified female breast (principal)

== ENCOUNTER → 2025-03-12 | Outpatient (REF) | payer MEDICARE | LOC: M SFHCWAGY 16:35 | PROVIDERS: ATTEND Nurse Practitioner Family | DX: R21 Rash and other nonspecific skin eruption (principal) ==

== ENCOUNTER → 2025-05-14 | Outpatient (REF) | payer MEDICARE | LOC: M LAB REF 16:29 | DX: M79.662 Pain in left lower leg (principal) ==

== ENCOUNTER → 2025-05-15 | Outpatient (CLI) | payer MEDICARE | LOC: M RAD 13:29 | DX: M79.89 Other specified soft tissue disorders (principal) ==

== ENCOUNTER → 2025-05-26 | Outpatient (CLI) | payer MEDICARE | LOC: M RAD 09:40 | DX: R20.8 Other disturbances of skin sensation (principal); R09.89 Other specified symptoms and signs involving the circulatory and respiratory systems ==